=== PATIENT | female | born 1960 | race Caucasian/White ===

== ENCOUNTER 2024-01-06 10:55 | Outpatient (AMB) | payer OTHER, SELFPAY ==
--- NOTE | 2024-01-06 11:03 | A.OFFVIS_ITS ---
Vital Signs 3 01/06/24 11:04 Height 5 ft 4.75 in Weight 130 lb 1.164 oz BMI 21.8 BP 110/72 Blood Pressure Location Rt brachial Position Sitting Pulse 72 Pulse Source Pulse Oximeter Pulse Oximetry (%) 99 Oxygen Delivery Method Room Air Intake Visit Reasons: Asthma Severity Allergies latex Allergy (Intermediate, Verified 01/06/24 11:07) Itching omeprazole [From Prilosec] Allergy (Intermediate, Verified 01/06/24 11:07) Rash shellfish derived Allergy (Intermediate, Verified 01/06/24 11:07) Hives venlafaxine Allergy (Intermediate, Verified 01/06/24 11:07) Confusion cats Allergy (Intermediate, Uncoded 01/06/24 11:07) Difficulty Breathing salmon Allergy (Mild, Uncoded 01/06/24 11:07) Diarrhea HPI HPI Asthma Severity: Details: Maryjo is a pleasant 63 year old female, never smoker, with underlying environmental allergies, osteoporosis, and h/o basal cell carcinoma of right arm. She was referred by PCP for pulmonary evaluation for RAD versus asthma. She reports this past fall having symptoms consistent with asthma, significant wheezing, chest tightness and cough which resolved with albuterol PRN. She attributes symptoms to seasonal fall allergies as well as cat allergy. She denies any recent allergy testing and is not interested in repeating at this time. She reports throughout the winter and spring, her respiratory symptoms have been controlled, using zyrtec PRN with good effect. Today she denies any wheezing, chest tightness, dyspnea or cough. She denies any decrease in exercise capacity, she is quite active. She denies any prior history of asthma. She reports allergen immunotherapy as a child into her 20s. She reports sister and two sons with asthma and father with lung cancer/COPD. She denies any occupational exposures, working in an office setting. She reports prior chest CT from 2020 revealed 5mm RLL pulmonary nodule, however did not have repeat scans to assess stability. Review of Systems Const Denies chills, Denies excessive sweating, Denies fever(s), Denies headache(s) and Denies night sweats Eyes Denies dry eyes, Denies irritation and Denies itchy eyes ENT Reports Normal hearing present, Denies headache(s), Denies nasal congestion, Denies nasal discharge, Denies post nasal drip and Denies sore throat Card Denies chest pain, Denies chest pain at rest, Denies chest pain with activity, Denies claudication, Denies leg edema, Denies dyspnea, Denies dyspnea on exertion, Denies orthopnea and Denies paroxysmal nocturnal dyspnea Resp Denies chest congestion, Denies cough, Denies excessive phlegm production, Denies pain on inspiration, Denies pain with cough, Denies dyspnea, Denies dyspnea on exertion, Denies stridor and Denies wheezing Musc Denies myalgias Neuro Reports Normal hearing present and Denies headache(s) Endo Denies excessive sweating Adrien/Lymph Denies lymphadenopathy Aller/Immun Denies itchy eyes, Denies seasonal rhinorrhea and Denies wheezing Physical Exam Vital Signs: Last Vital Signs Pulse 72 01/06/24 11:04 BP 110/72 01/06/24 11:04 Pulse Ox 99 01/06/24 11:04 Oxygen Delivery Method Room Air 01/06/24 11:04 BMI result Body Mass Index 21.8 Const General: cooperative, healthy appearing, comfortable, no acute distress, well developed and alert Orientation/consciousness: patient oriented x3 Limitations: no limitations HEENT Head: Yes normal to inspection, Yes normocephalic and Yes atraumatic Ears: hearing grossly normal bilaterally and external ears normal Eyes General: appearance normal, both eyes and all related structures Eyelids: Yes eyelids normal Sclerae: sclerae normal EOM: EOMs intact bilaterally Neck Neck: Yes normal visual inspection and Yes no lymphadenopathy Lymphatic: no lymphadenopathy noted Chest Chest palpation & inspection: normal inspection of the chest Resp Effort & Inspection: normal respiratory effort, able to speak in complete sentences, no audible wheezes, no cough, no stridor, not tachypneic, no tripod positioning and no use of accessory muscles Auscultation: clear to auscultation bilaterally Cardio Jugular venous distension: no JVD Rate: regular rate Rhythm: regular rhythm Skin Other: warm, dry General skin exam: no rashes or lesions noted Neuro General: patient oriented x3 Cranial nerves: Yes Normal hearing present Cognition (Neuro): normal cognition Gait exam (Neuro): Normal gait present Extrem General: Yes normal to inspection, Yes capillary refill normal, Yes no clubbing, cyanosis or edema and Yes no pedal edema Psych Appearance: grossly normal and well kempt Speech and movement: Normal speech and movement present and Clear speech present Affect: normal affect Attitude: cooperative Thought process: Normal thought process present Thought content: Normal thought content present Insight: Good insight present (Psych) Judgement: Good judgement present (Psych) Results Reviewed Results Reviewed: Assessment & Plan Assessment & Plan (1) Asthma: Code(s): J45.909 - Unspecified asthma, uncomplicated Category: Medical (2) Environmental allergies: Code(s): Z91.09 - Other allergy status, other than to drugs and biological substances Category: Medical (3) Pulmonary nodule: Code(s): R91.1 - Solitary pulmonary nodule Category: Medical Plan At this time, Maryjo's symptoms are well controlled without any respiratory regimen. Offered RAST testing but she would like to hold off at this time. Will send for PFT to thoroughly evaluate for an obstructive defect. Will also send for chest CT as prior CT noted pulmonary nodule 5 mm of RUL, with no follow up scans to assess stability. All questions were answered and patient is in agreement of plan. Will follow up to review results or sooner if needed. Orders: Orders 2 PFT pulmonary function test Today J45.909 - Unspecified asthma, uncomplicated CT chest wo IV con Today R91.1 - Solitary pulmonary nodule
[2024-01-06 11:04] VITALS: BP 110/72; PULSE 72; O2SAT 99; BMI 21.8
== END 2024-01-06 11:43 | disposition home or self-care (01) ==
LOC: HO.HPS 10:57
PROVIDERS: PCP Internal Medicine; Referring Provider Internal Medicine; Visit Provider Nurse Practitioner Family
DX: J45.909 Unspecified asthma, uncomplicated (principal)
CPT/HCPCS: 94060; 94727; 94729; 99204

== ENCOUNTER → 2024-01-06 10:57 | Outpatient (BNVA) | payer OTHER, SELFPAY | PROVIDERS: PCP Internal Medicine; Referring Provider Internal Medicine; Visit Provider Nurse Practitioner Family ==

== ENCOUNTER 2024-01-06 12:54 | Outpatient (REF) | payer OTHER, SELFPAY ==
[2024-01-06 11:46] VITALS: PULSE 72; RESP 16; O2SAT 98
--- NOTE | 2024-01-06 13:57 | PFT_ITS ---
Indication: Asthma Spirometry [FEV1 to FVC 83%; FEV1 3.04 L; FVC 3.67 L. there was a significant response to bronchodilators noted. Maximum voluntary ventilation 89% predicted] Lung Volumes [Total lung capacity 100% predicted] Diffusion Capacity [Diffusing capacity 88 her % predicted] Comparisons [None] Interpretation [No obstructive nor restrictive ventilatory defects identified. There was a significant response to bronchodilators noted. Normal maximum voluntary ventilation. Lung volumes are within normal limits. Diffusing capacity also within normal limits. Clinical correlation warranted.] MTDD
== END 2024-01-06 12:55 | disposition home or self-care (01) ==
LOC: HO.RESP 12:54
PROVIDERS: PCP Internal Medicine; Visit Provider Nurse Practitioner Family
DX: J45.909 Unspecified asthma, uncomplicated (principal)
CPT/HCPCS: 94010; 94640; 94727; 94729

== ENCOUNTER 2024-02-14 07:15 | Outpatient (REF) | payer OTHER, SELFPAY ==
--- NOTE | ~2024-02-14 | CT_ITS ---
EXAMINATION: CT CHEST WITHOUT CONTRAST CLINICAL INFORMATION: Solitary pulmonary nodule . COMPARISON: None available. TECHNIQUE: Multidetector volumetric CT imaging of the chest was done. Axial MIP volume rendering provided. Sagittal and coronal reformatted images were obtained. This CT examination was performed using dose optimization techniques as appropriate, variously including the following: *Automated exposure control *Adjustment of mA and/or kV according to patient size (this includes techniques or standardized protocols for targeted exams where dose is matched to indication/reason for exam; i.e. extremities or head) *Use of iterative reconstruction technique DLP: 117 mGy-cm FINDINGS: LUNGS: Some small pulmonary nodules are seen (see wiley images). The largest is a triangular-shaped perifissural lymph node on the undersurface of the minor fissure in the right middle lobe measuring 3 mm (5:306). The lungs are clear with no evidence of inflammation or concerning nodules. MEDIASTINUM: The mediastinum is normal. CORONARY ARTERY CALCIFICATION: None visualized on this study. PLEURA: There is no pleural effusion. No pleural mass or thickening. AXILLA: No lymphadenopathy. UPPER ABDOMEN: Unremarkable. OSSEOUS STRUCTURES: Unremarkable. CT/CT chest wo IV con IMPRESSION: Small pulmonary nodules are seen. The largest is a 3 mm perifissural lymph node. Fleischner guidelines were followed.
== END 2024-02-14 07:16 | disposition home or self-care (01) ==
LOC: HO.CT 07:15
PROVIDERS: PCP Internal Medicine; Visit Provider Nurse Practitioner Family
DX: R91.1 Solitary pulmonary nodule (principal)
CPT/HCPCS: 71250

== ENCOUNTER 2024-02-17 09:56 | Outpatient (AMB) | payer OTHER, SELFPAY ==
--- NOTE | 2024-02-17 09:21 | A.OFFVIS_ITS ---
Vital Signs 02/17/24 10:04 Height 5 ft 4.75 in Weight 133 lb 6.075 oz BMI 22.4 BP 118/64 Blood Pressure Location Lt brachial Position Sitting Pulse 97 Pulse Source Pulse Oximeter Pulse Oximetry (%) 96 Oxygen Delivery Method Room Air Intake Visit Reasons: Shortness of breath Allergies latex Allergy (Intermediate, Verified 02/17/24 10:07) Itching omeprazole [From Prilosec] Allergy (Intermediate, Verified 02/17/24 10:07) Rash shellfish derived Allergy (Intermediate, Verified 02/17/24 10:07) Hives venlafaxine Allergy (Intermediate, Verified 02/17/24 10:07) Confusion cats Allergy (Intermediate, Uncoded 02/17/24 10:07) Difficulty Breathing salmon Allergy (Mild, Uncoded 02/17/24 10:07) Diarrhea HPI HPI Shortness of breath: Details: Maryjo is a pleasant 63 year old female, never smoker, with underlying environmental allergies, osteoporosis, and h/o basal cell carcinoma of right arm . At the last visit she had reported intermittent symptoms of dyspnea and wheezing which were minimal. However since the last visit, she reports worsening control of respiratory symptoms using albuterol frequently for wheezing and dyspnea on exertion. She denies cough or chest tightness. Prior chest CT from 2020 revealed 5mm RLL pulmonary nodule, repeat chest CT was ordered at the last visit, but has not been officially read yet. Today she presents to review PFT. Review of Systems Const Denies chills, Denies excessive sweating, Denies fever(s), Denies headache(s) and Denies night sweats Eyes Denies dry eyes, Denies irritation and Denies itchy eyes ENT Reports Normal hearing present, Denies headache(s), Denies nasal congestion, Denies nasal discharge, Denies post nasal drip, Reports sinus pressure and Denies sore throat Card Denies chest pain, Denies chest pain at rest, Denies chest pain with activity, Denies claudication, Denies leg edema, Reports dyspnea on exertion, Denies orthopnea and Denies paroxysmal nocturnal dyspnea Resp Denies chest congestion, Denies cough, Denies excessive phlegm production, Denies pain on inspiration, Denies pain with cough, Reports dyspnea on exertion, Denies stridor and Reports wheezing Musc Denies myalgias Neuro Reports Normal hearing present and Denies headache(s) Endo Denies excessive sweating Adrien/Lymph Denies lymphadenopathy Aller/Immun Denies itchy eyes, Denies seasonal rhinorrhea and Reports wheezing Physical Exam Vital Signs: Last Vital Signs Pulse 97 02/17/24 10:04 BP 118/64 02/17/24 10:04 Pulse Ox 96 02/17/24 10:04 Oxygen Delivery Method Room Air 02/17/24 10:04 BMI result Body Mass Index 22.4 Const General: cooperative, healthy appearing, comfortable, no acute distress, well developed and alert Orientation/consciousness: patient oriented x3 Limitations: no limitations HEENT Head: Yes normal to inspection, Yes normocephalic and Yes atraumatic Ears: hearing grossly normal bilaterally and external ears normal Eyes General: appearance normal, both eyes and all related structures Eyelids: Yes eyelids normal Sclerae: sclerae normal EOM: EOMs intact bilaterally Neck Neck: Yes normal visual inspection and Yes no lymphadenopathy Lymphatic: no lymphadenopathy noted Chest Chest palpation & inspection: normal inspection of the chest Resp Effort & Inspection: normal respiratory effort, able to speak in complete sentences, no audible wheezes, no cough, no stridor, not tachypneic, no tripod positioning and no use of accessory muscles Auscultation: clear to auscultation bilaterally Cardio Jugular venous distension: no JVD Rate: regular rate Rhythm: regular rhythm Skin Other: warm, dry General skin exam: no rashes or lesions noted Neuro General: patient oriented x3 Cranial nerves: Yes Normal hearing present Cognition (Neuro): normal cognition Gait exam (Neuro): Normal gait present Extrem General: Yes normal to inspection, Yes capillary refill normal, Yes no clubbing, cyanosis or edema and Yes no pedal edema Psych Appearance: grossly normal and well kempt Speech and movement: Normal speech and movement present and Clear speech present Affect: normal affect Attitude: cooperative Thought process: Normal thought process present Thought content: Normal thought content present Insight: Good insight present (Psych) Judgement: Good judgement present (Psych) Assessment & Plan Assessment & Plan (1) Asthma: Code(s): J45.909 - Unspecified asthma, uncomplicated Category: Medical (2) Environmental allergies: Code(s): Z91.09 - Other allergy status, other than to drugs and biological substances Category: Medical (3) Pulmonary nodule: Code(s): R91.1 - Solitary pulmonary nodule Category: Medical Plan Reviewed PFT results which revealed No obstructive nor restrictive ventilatory defects identified. There was a significant response to bronchodilators noted. Normal maximum voluntary ventilation. Lung volumes are within normal limits. Diffusing capacity also within normal limits. Will empirically trial Breo as patient quite symptomatic. Chest CT completed however not officially read by radiology. Will call patient to review results when completed. All questions were answered and patient is in agreement of plan. Will follow up in 6-8 weeks or sooner if needed. Medications: New fluticasone furoate-vilanterol 100-25 mcg/dose (Breo Ellipta) 1 inh inhalation DAILY 60 ea 6RF Coding Level of Care Code Est Pt Level 4 (94590) Diagnoses Asthma J45.909 Environmental allergies Z91.09 Pulmonary nodule R91.1
[2024-02-17 10:04] VITALS: BP 118/64; PULSE 97; O2SAT 96; BMI 22.4
== END 2024-02-17 10:32 | disposition home or self-care (01) ==
PROVIDERS: PCP Internal Medicine; Visit Provider Nurse Practitioner Family
DX: J45.909 Unspecified asthma, uncomplicated (principal); Z91.09 Other allergy status, other than to drugs and biological substances; R91.1 Solitary pulmonary nodule
CPT/HCPCS: 99214

== ENCOUNTER → 2024-02-17 09:56 | Outpatient (BNVA) | payer OTHER, SELFPAY | PROVIDERS: PCP Internal Medicine; Visit Provider Nurse Practitioner Family ==

== ENCOUNTER 2024-03-24 08:48 | Outpatient (AMB) | payer OTHER, SELFPAY ==
--- NOTE | 2024-03-24 08:45 | A.OFFVIS_ITS ---
Vital Signs 03/24/24 09:03 Height 5 ft 4.75 in Weight 128 lb BMI 21.5 BP 110/69 Blood Pressure Location Rt brachial Position Sitting Pulse 77 Pulse Source Pulse Oximeter Pulse Oximetry (%) 98 Oxygen Delivery Method Room Air Intake Visit Reasons: Shortness of breath Allergies latex Allergy (Intermediate, Verified 03/24/24 09:07) Itching omeprazole [From Prilosec] Allergy (Intermediate, Verified 03/24/24 09:07) Rash shellfish derived Allergy (Intermediate, Verified 03/24/24 09:07) Hives venlafaxine Allergy (Intermediate, Verified 03/24/24 09:07) Confusion cats Allergy (Intermediate, Uncoded 03/24/24 09:07) Difficulty Breathing salmon Allergy (Mild, Uncoded 03/24/24 09:07) Diarrhea HPI HPI Shortness of breath: Details: Maryjo is a pleasant 63 year old female, never smoker, with underlying environmental allergies, osteoporosis, and h/o basal cell carcinoma of right arm. At the last visit, Breo was added to regimen for dyspnea and wheezing with good effect, requiring albuterol very infrequently. She reports over the last week, likely from hot and humid weather, patient with worsening symptoms of dyspnea, wheezing, chest tightness and dry cough when engaging in any outdoor activities. [facility] Social History (Updated 03/24/24 @ 09:06 by Esme Pelletier [facility]) Patient Tobacco Use Status: Never used Tobacco Review of Systems Const Denies chills, Denies excessive sweating, Denies fever(s), Denies headache(s) and Denies night sweats Eyes Denies dry eyes, Denies irritation and Denies itchy eyes ENT Reports Normal hearing present, Denies headache(s), Denies nasal congestion, Denies nasal discharge, Denies post nasal drip and Denies sore throat Card Denies chest pain, Denies chest pain at rest, Denies chest pain with activity, Denies claudication, Denies leg edema, Reports dyspnea on exertion, Denies orthopnea and Denies paroxysmal nocturnal dyspnea Resp Denies chest congestion, Denies excessive phlegm production, Denies pain on inspiration, Denies pain with cough, Reports dyspnea on exertion, Denies stridor and Reports wheezing Musc Denies myalgias Neuro Reports Normal hearing present and Denies headache(s) Endo Denies excessive sweating Adrien/Lymph Denies lymphadenopathy Aller/Immun Denies itchy eyes, Denies seasonal rhinorrhea and Reports wheezing Physical Exam Vital Signs: Last Vital Signs Pulse 77 03/24/24 09:03 BP 110/69 03/24/24 09:03 Pulse Ox 98 03/24/24 09:03 Oxygen Delivery Method Room Air 03/24/24 09:03 BMI result Body Mass Index 21.5 Const General: cooperative, healthy appearing, comfortable, no acute distress, well developed and alert Orientation/consciousness: patient oriented x3 Limitations: no limitations HEENT Head: Yes normal to inspection, Yes normocephalic and Yes atraumatic Ears: hearing grossly normal bilaterally and external ears normal Eyes General: appearance normal, both eyes and all related structures Eyelids: Yes eyelids normal Sclerae: sclerae normal EOM: EOMs intact bilaterally Neck Neck: Yes normal visual inspection and Yes no lymphadenopathy Lymphatic: no lymphadenopathy noted Chest Chest palpation & inspection: normal inspection of the chest Resp Effort & Inspection: normal respiratory effort, able to speak in complete sentences, no audible wheezes, no cough, no stridor, not tachypneic, no tripod positioning and no use of accessory muscles Auscultation: clear to auscultation bilaterally Cardio Jugular venous distension: no JVD Rate: regular rate Rhythm: regular rhythm Skin Other: warm, dry General skin exam: no rashes or lesions noted Neuro General: patient oriented x3 Cranial nerves: Yes Normal hearing present Cognition (Neuro): normal cognition Gait exam (Neuro): Normal gait present Extrem General: Yes normal to inspection, Yes capillary refill normal, Yes no clubbing, cyanosis or edema and Yes no pedal edema Psych Appearance: grossly normal and well kempt Speech and movement: Normal speech and movement present and Clear speech present Affect: normal affect Attitude: cooperative Thought process: Normal thought process present Thought content: Normal thought content present Insight: Good insight present (Psych) Judgement: Good judgement present (Psych) Assessment & Plan Assessment & Plan (1) Asthma: Code(s): J45.909 - Unspecified asthma, uncomplicated Category: Medical (2) Environmental allergies: Code(s): Z91.09 - Other allergy status, other than to drugs and biological substances Category: Medical (3) Pulmonary nodule: Code(s): R91.1 - Solitary pulmonary nodule Category: Medical Plan Maryjo reports worsening control of asthma with the change in weather, advised to use albuterol prior to engaging in any activities outdoors. If symptoms persist, will consider increasing Breo. Patient is aware if symptoms worsen to call office. All questions were answered and patient is in agreement of plan. Will follow up in 6-8 weeks or sooner if needed. Coding Level of Care Code Est Pt Level 3 (64331) Diagnoses Asthma J45.909 Environmental allergies Z91.09 Pulmonary nodule R91.1
[2024-03-24 09:03] VITALS: BP 110/69; PULSE 77; O2SAT 98; BMI 21.5
== END 2024-03-24 09:27 | disposition home or self-care (01) ==
PROVIDERS: PCP Internal Medicine; Visit Provider Nurse Practitioner Family
DX: J45.909 Unspecified asthma, uncomplicated (principal); Z91.09 Other allergy status, other than to drugs and biological substances; R91.1 Solitary pulmonary nodule
CPT/HCPCS: 99213

== ENCOUNTER → 2024-03-24 08:48 | Outpatient (BNVA) | payer OTHER, SELFPAY | PROVIDERS: PCP Internal Medicine; Visit Provider Nurse Practitioner Family ==

== ENCOUNTER 2024-05-26 09:04 | Outpatient (AMB) | payer OTHER, SELFPAY ==
[2024-05-26 09:23] VITALS: BP 102/68; PULSE 75; O2SAT 97; BMI 21.7
--- NOTE | 2024-05-26 09:23 | MHC.OFFVIS ---
Vital Signs 05/26/24 09:23 Height 5 ft 4.75 in Weight 129 lb 8 oz BMI 21.7 BP 102/68 Blood Pressure Location Rt brachial Position Sitting Pulse 75 Pulse Source Pulse Oximeter Pulse Oximetry (%) 97 Oxygen Delivery Method Room Air Intake Visit Reasons: Shortness of breath Allergies latex Allergy (Intermediate, Verified 05/26/24 09:28) Itching omeprazole [From Prilosec] Allergy (Intermediate, Verified 05/26/24 09:28) Rash shellfish derived Allergy (Intermediate, Verified 05/26/24 09:28) Hives venlafaxine Allergy (Intermediate, Verified 05/26/24 09:28) Confusion cats Allergy (Intermediate, Uncoded 05/26/24 09:28) Difficulty Breathing salmon Allergy (Mild, Uncoded 05/26/24 09:28) Diarrhea HPI HPI Shortness of breath: Details: Maryjo is a pleasant 63 year old female, never smoker, with underlying environmental allergies, osteoporosis, and h/o basal cell carcinoma of right arm. At the last visit, Breo was increased with improvements in respiratory symptoms. However continues to report seasonal allergies triggering asthma. She denies any visits to urgent care or hospitalizations since the last visit. [facility] Social History (Reviewed 05/26/24 @ 09:27 by Esme Pelletier [facility]) Patient Tobacco Use Status: Never used Tobacco Review of Systems Const Denies chills, Denies excessive sweating, Denies fever(s), Denies headache(s) and Denies night sweats Eyes Denies dry eyes, Denies irritation and Denies itchy eyes ENT Reports Normal hearing present and Denies headache(s) Card Denies chest pain, Denies chest pain at rest, Denies chest pain with activity, Denies claudication, Denies leg edema, Reports dyspnea on exertion, Denies orthopnea and Denies paroxysmal nocturnal dyspnea Resp Denies chest congestion, Denies excessive phlegm production, Denies pain on inspiration, Denies pain with cough, Reports dyspnea on exertion, Denies stridor and Reports wheezing Musc Denies myalgias Neuro Reports Normal hearing present and Denies headache(s) Endo Denies excessive sweating Adrien/Lymph Denies lymphadenopathy Aller/Immun Denies itchy eyes, Denies seasonal rhinorrhea and Reports wheezing Physical Exam Vital Signs: Last Vital Signs Pulse 75 05/26/24 09:23 BP 102/68 05/26/24 09:23 Pulse Ox 97 05/26/24 09:23 Oxygen Delivery Method Room Air 05/26/24 09:23 BMI result Body Mass Index 21.7 Const General: cooperative, healthy appearing, comfortable, no acute distress, well developed and alert Orientation/consciousness: patient oriented x3 Limitations: no limitations HEENT Head: Yes normal to inspection, Yes normocephalic and Yes atraumatic Ears: hearing grossly normal bilaterally and external ears normal Eyes General: appearance normal, both eyes and all related structures Eyelids: Yes eyelids normal Sclerae: sclerae normal EOM: EOMs intact bilaterally Neck Neck: Yes normal visual inspection and Yes no lymphadenopathy Lymphatic: no lymphadenopathy noted Chest Chest palpation & inspection: normal inspection of the chest Resp Effort & Inspection: normal respiratory effort, able to speak in complete sentences, no audible wheezes, no cough, no stridor, not tachypneic, no tripod positioning and no use of accessory muscles Auscultation: clear to auscultation bilaterally Cardio Jugular venous distension: no JVD Rate: regular rate Rhythm: regular rhythm Skin Other: warm, dry General skin exam: no rashes or lesions noted Neuro General: patient oriented x3 Cranial nerves: Yes Normal hearing present Cognition (Neuro): normal cognition Gait exam (Neuro): Normal gait present Extrem General: Yes normal to inspection, Yes capillary refill normal, Yes no clubbing, cyanosis or edema and Yes no pedal edema Psych Appearance: grossly normal and well kempt Speech and movement: Normal speech and movement present and Clear speech present Affect: normal affect Attitude: cooperative Thought process: Normal thought process present Thought content: Normal thought content present Insight: Good insight present (Psych) Judgement: Good judgement present (Psych) Assessment & Plan Assessment & Plan (1) Asthma: Code(s): J45.909 - Unspecified asthma, uncomplicated Category: Medical (2) Environmental allergies: Code(s): Z91.09 - Other allergy status, other than to drugs and biological substances Category: Medical (3) Pulmonary nodule: Code(s): R91.1 - Solitary pulmonary nodule Category: Medical Plan Maryjo reports improvements with Breo 200 mcg and albuterol MDI, however continues to report seasonal allergy triggers. Will add Singulair. Patient is aware if symptoms worsen to call office. All questions were answered and patient is in agreement of plan. Will follow up in 3 months or sooner if needed. Medications: New montelukast (Singulair) 10 mg PO BEDTIME 30 tabs 3RF Coding Level of Care Code Est Pt Level 3 (29936) Diagnoses Asthma J45.909 Environmental allergies Z91.09 Pulmonary nodule R91.1
== END 2024-05-26 09:57 | disposition home or self-care (01) ==
PROVIDERS: PCP Internal Medicine; Visit Provider Nurse Practitioner Family
DX: J45.909 Unspecified asthma, uncomplicated (principal); Z91.09 Other allergy status, other than to drugs and biological substances; R91.1 Solitary pulmonary nodule
CPT/HCPCS: 99213

== ENCOUNTER → 2024-05-26 09:04 | Outpatient (BNVA) | payer OTHER, SELFPAY | PROVIDERS: PCP Internal Medicine; Visit Provider Nurse Practitioner Family ==

== ENCOUNTER 2024-08-25 09:52 | Outpatient (AMB) | payer OTHER, SELFPAY ==
--- NOTE | 2024-08-25 09:56 | MHC.OFFVIS ---
Vital Signs 08/25/24 09:57 Height 5 ft 4.75 in Weight 127 lb 6 oz BMI 21.4 BP 104/66 Blood Pressure Location Rt brachial Position Sitting Pulse 90 Pulse Source Pulse Oximeter Pulse Oximetry (%) 96 Oxygen Delivery Method Room Air Intake Visit Reasons: Shortness of breath Allergies latex Allergy (Intermediate, Verified 08/25/24 10:00) Itching omeprazole [From Prilosec] Allergy (Intermediate, Verified 08/25/24 10:00) Rash shellfish derived Allergy (Intermediate, Verified 08/25/24 10:00) Hives venlafaxine Allergy (Intermediate, Verified 08/25/24 10:00) Confusion cats Allergy (Intermediate, Uncoded 08/25/24 10:00) Difficulty Breathing salmon Allergy (Mild, Uncoded 08/25/24 10:00) Diarrhea HPI HPI Shortness of breath: Details: Maryjo is a pleasant 63 year old female, never smoker, with underlying environmental allergies, osteoporosis, and h/o basal cell carcinoma of right arm. At baseline she has been well controlled with Breo, singulair and albuterol MDI. She does note worsening respiratory symptoms after exposure to granddaughter with likely URI two weeks ago. She continues to report chest congestion, dry cough with difficulty expectorating, dyspnea and wheezing. She has not been using albuterol. She denies fevers or chills. [facility] Social History Patient Tobacco Use Status: Never used Tobacco Review of Systems Const Denies chills, Denies excessive sweating, Denies fever(s), Denies headache(s) and Denies night sweats Eyes Denies dry eyes, Denies irritation and Denies itchy eyes ENT Reports Normal hearing present and Denies headache(s) Card Denies chest pain, Denies chest pain at rest, Denies chest pain with activity, Denies claudication, Denies leg edema, Reports dyspnea on exertion, Denies orthopnea and Denies paroxysmal nocturnal dyspnea Resp Denies excessive phlegm production, Denies pain on inspiration, Denies pain with cough, Reports dyspnea on exertion, Denies stridor and Reports wheezing Musc Denies myalgias Neuro Reports Normal hearing present and Denies headache(s) Endo Denies excessive sweating Adrien/Lymph Denies lymphadenopathy Aller/Immun Denies itchy eyes, Denies seasonal rhinorrhea and Reports wheezing Physical Exam Vital Signs: Last Vital Signs Pulse 90 08/25/24 09:57 BP 104/66 08/25/24 09:57 Pulse Ox 96 08/25/24 09:57 Oxygen Delivery Method Room Air 08/25/24 09:57 BMI result Body Mass Index 21.4 Const General: cooperative, healthy appearing, comfortable, no acute distress, well developed and alert Orientation/consciousness: patient oriented x3 Limitations: no limitations HEENT Head: Yes normal to inspection, Yes normocephalic and Yes atraumatic Ears: hearing grossly normal bilaterally and external ears normal Eyes General: appearance normal, both eyes and all related structures Eyelids: Yes eyelids normal Sclerae: sclerae normal EOM: EOMs intact bilaterally Neck Neck: Yes normal visual inspection and Yes no lymphadenopathy Lymphatic: no lymphadenopathy noted Chest Chest palpation & inspection: normal inspection of the chest Resp Other: post exhalation cough with rhonchi , improved with duoneb Effort & Inspection: normal respiratory effort, able to speak in complete sentences, no audible wheezes, no stridor, not tachypneic, no tripod positioning and no use of accessory muscles Cardio Jugular venous distension: no JVD Rate: regular rate Rhythm: regular rhythm Skin Other: warm, dry General skin exam: no rashes or lesions noted Neuro General: patient oriented x3 Cranial nerves: Yes Normal hearing present Cognition (Neuro): normal cognition Gait exam (Neuro): Normal gait present Extrem General: Yes normal to inspection, Yes capillary refill normal, Yes no clubbing, cyanosis or edema and Yes no pedal edema Psych Appearance: grossly normal and well kempt Speech and movement: Normal speech and movement present and Clear speech present Affect: normal affect Attitude: cooperative Thought process: Normal thought process present Thought content: Normal thought content present Insight: Good insight present (Psych) Judgement: Good judgement present (Psych) Office Procedures Nebulizer Treatment Nebulizer Treatment [id number]/MDI RX initial, or Nebulizer Subsequent Treatment Office Meds ipratropium 0.5 mg-albuterol 3 mg (2.5 mg base)/3 mL nebulization krisn Performing Provider: Leesa Flood NP Performing Location: [facility] [place] [facility] Administered by: Tami Fisher LPN on 08/25/24 12:13 Dose Route Admin Location Dispensed Lot Number Expiration Date NDC [employer] Service Supervisor 3 mL inhalation 3 mL [id number] 12/14/25 40569-177-08 [employer] Assessment & Plan Assessment & Plan (1) Asthma: Code(s): J45.909 - Unspecified asthma, uncomplicated Category: Medical (2) Environmental allergies: Code(s): Z91.09 - Other allergy status, other than to drugs and biological substances Category: Medical (3) Pulmonary nodule: Code(s): R91.1 - Solitary pulmonary nodule Category: Medical Plan Patient significantly improved after duoneb, encouraged to use nebulizer more frequently during this time. Advised to continue current regimen. If symptoms persist will consider prednisone. She is aware to call if symptoms do not improve. All questions were answered and patient is in agreement of plan. Will follow up in 3 months or sooner if needed. Orders: Orders AMB Nebulizer Treatment Today J45.909 - Unspecified asthma, uncomplicated Medications: New albuterol sulfate 2.5 mg (3 mL) inhalation Q4-6H PRN 180 mL 0RF shortness of breath or wheezing Coding Level of Care Code Est Pt Level 4 (30639) Diagnoses Asthma J45.909 Environmental allergies Z91.09 Pulmonary nodule R91.1 CPT Codes Nebulizer Treatment - Nebulizer Treatment, initial or subsequent: [id number]/MDI RX initial, or Nebulizer Subsequent Treatment ([id number])
[2024-08-25 09:57] VITALS: BP 104/66; PULSE 90; O2SAT 96; BMI 21.4
== END 2024-08-25 10:30 | disposition home or self-care (01) ==
PROVIDERS: PCP Internal Medicine; Visit Provider Nurse Practitioner Family
DX: J45.909 Unspecified asthma, uncomplicated (principal); Z91.09 Other allergy status, other than to drugs and biological substances; R91.1 Solitary pulmonary nodule
CPT/HCPCS: 99214

== ENCOUNTER → 2024-08-25 09:52 | Outpatient (BNVA) | payer OTHER, SELFPAY | PROVIDERS: PCP Internal Medicine; Visit Provider Nurse Practitioner Family | DX: J45.909 Unspecified asthma, uncomplicated (principal); R91.1 Solitary pulmonary nodule; Z91.09 Other allergy status, other than to drugs and biological substances | CPT/HCPCS: 94640 ==

== ENCOUNTER 2024-11-24 09:00 | Outpatient (AMB) | payer MEDICARE, SELFPAY ==
--- NOTE | 2024-11-24 09:09 | MHC.OFFVIS ---
Vital Signs 11/24/24 09:10 Height 5 ft 4.75 in Weight 128 lb BMI 21.5 BP 122/64 Blood Pressure Location Lt brachial Position Sitting Pulse 92 Pulse Source Pulse Oximeter Pulse Oximetry (%) 98 Oxygen Delivery Method Room Air Intake Visit Reasons: Shortness of breath Moose Hunter Required: No Human Resources Benefits Specialist: Human Resources Benefits Specialist offered & declined Accompanied by: Self / Same As Patient Allergies latex Allergy (Intermediate, Verified 11/24/24 09:15) Itching omeprazole [From Prilosec] Allergy (Intermediate, Verified 11/24/24 09:15) Rash shellfish derived Allergy (Intermediate, Verified 11/24/24 09:15) Hives venlafaxine Allergy (Intermediate, Verified 11/24/24 09:15) Confusion cats Allergy (Intermediate, Uncoded 11/24/24 09:15) Difficulty Breathing salmon Allergy (Mild, Uncoded 11/24/24 09:15) Diarrhea Medication List - Last Reconciled 11/24/24 by Tami Fisher LPN albuterol sulfate 90 mcg/actuation 1 puff inhalation Q4H PRN albuterol sulfate 2.5 mg (3 mL) inhalation Q4-6H PRN alendronate mg PO atorvastatin 10 mg PO DAILY Breo Ellipta 200-25 mcg/dose (fluticasone furoate-vilanterol) 1 inh inhalation DAILY NS cetirizine (Zyrtec) 10 mg PO DAILY PRN diphenhydramine HCl (Benadryl) 25 mg PO BEDTIME PRN famotidine-Ca carb-mag hydrox 10-800-165 mg (Pepcid Complete) 1 tab PO Q12H fluticasone propionate 50 mcg/actuation (Flonase Allergy Relief) 1 spray intranasal DAILY inulin (Fiber Gummies) grams PO PRN melatonin mg PO PRN montelukast 10 mg PO BEDTIME multivitamin (Daily Multi-Vitamin tablet) 1 tab PO DAILY HPI HPI Shortness of breath: Details: Maryjo is a pleasant 63 year old female, never smoker, with underlying environmental allergies, osteoporosis, and h/o basal cell carcinoma of right arm. At this time symptoms have been well controlled on Breo, Singulair, using albuterol MDI infrequently. Her symptoms are triggered by allergens, recently during vacation symptoms worsened with exposure to fragrances requiring frequent use of albuterol MDI/neb with good effect. Since being home symptoms have significantly improved. She had received allergy shots years ago with good effect and is interested in possibly restarting allergen immunotherapy. [facility] Social History Patient Tobacco Use Status: Never used Tobacco Review of Systems Const Denies chills, Denies excessive sweating, Denies fever(s), Denies headache(s) and Denies night sweats Eyes Denies dry eyes, Denies irritation and Denies itchy eyes ENT Reports Normal hearing present, Denies headache(s), Denies nasal congestion, Denies nasal discharge, Denies post nasal drip and Denies sore throat Card Denies chest pain, Denies chest pain at rest, Denies chest pain with activity, Denies claudication, Denies leg edema, Denies dyspnea, Denies dyspnea on exertion, Denies orthopnea and Denies paroxysmal nocturnal dyspnea Resp Denies chest congestion, Denies cough, Denies excessive phlegm production, Denies pain on inspiration, Denies pain with cough, Denies dyspnea, Denies dyspnea on exertion, Denies stridor and Denies wheezing Musc Denies myalgias Neuro Reports Normal hearing present and Denies headache(s) Endo Denies excessive sweating Adrien/Lymph Denies lymphadenopathy Aller/Immun Denies itchy eyes, Denies seasonal rhinorrhea and Denies wheezing Physical Exam Vital Signs: Last Vital Signs Pulse 92 11/24/24 09:10 BP 122/64 11/24/24 09:10 Pulse Ox 98 11/24/24 09:10 Oxygen Delivery Method Room Air 11/24/24 09:10 BMI result Body Mass Index 21.5 Const General: cooperative, healthy appearing, comfortable, no acute distress, well developed and alert Orientation/consciousness: patient oriented x3 Limitations: no limitations HEENT Head: Yes normal to inspection, Yes normocephalic and Yes atraumatic Ears: hearing grossly normal bilaterally and external ears normal Eyes General: appearance normal, both eyes and all related structures Eyelids: Yes eyelids normal Sclerae: sclerae normal EOM: EOMs intact bilaterally Neck Neck: Yes normal visual inspection and Yes no lymphadenopathy Lymphatic: no lymphadenopathy noted Chest Chest palpation & inspection: normal inspection of the chest Resp Effort & Inspection: normal respiratory effort, able to speak in complete sentences, no audible wheezes, no cough, no stridor, not tachypneic, no tripod positioning and no use of accessory muscles Auscultation: clear to auscultation bilaterally Cardio Jugular venous distension: no JVD Rate: regular rate Rhythm: regular rhythm Skin Other: warm, dry General skin exam: no rashes or lesions noted Neuro General: patient oriented x3 Cranial nerves: Yes Normal hearing present Cognition (Neuro): normal cognition Gait exam (Neuro): Normal gait present Extrem General: Yes normal to inspection, Yes capillary refill normal, Yes no clubbing, cyanosis or edema and Yes no pedal edema Psych Appearance: grossly normal and well kempt Speech and movement: Normal speech and movement present and Clear speech present Affect: normal affect Attitude: cooperative Thought process: Normal thought process present Thought content: Normal thought content present Insight: Good insight present (Psych) Judgement: Good judgement present (Psych) Results Reviewed Results Reviewed: [address] [address] [address] Scan Report Signed Patient: Maryjo Forte MR#: [id number] : 1960 Acct:[id number] Age/Sex: 63 / F ADM Date: 02/14/24 Loc: HO.CT Attending Dr: Leesa Flood NP Ordering Physician: Leesa Flood NP Date of Service: 02/14/24 Procedure(s): CT chest wo IV con Accession Number(s): [id number] cc: Keila Herbert DO; Leesa Flood NP~ EXAMINATION: CT CHEST WITHOUT CONTRAST CLINICAL INFORMATION: Solitary pulmonary nodule . COMPARISON: None available. TECHNIQUE: Multidetector volumetric CT imaging of the chest was done. Axial MIP volume rendering provided. Sagittal and coronal reformatted images were obtained. This CT examination was performed using dose optimization techniques as appropriate, variously including the following: *Automated exposure control *Adjustment of mA and/or kV according to patient size (this includes techniques or standardized protocols for targeted exams where dose is matched to indication/reason for exam; i.e. extremities or head) *Use of iterative reconstruction technique DLP: 117 mGy-cm FINDINGS: LUNGS: Some small pulmonary nodules are seen (see wiley images). The largest is a triangular-shaped perifissural lymph node on the undersurface of the minor fissure in the right middle lobe measuring 3 mm (5:306). The lungs are clear with no evidence of inflammation or concerning nodules. MEDIASTINUM: The mediastinum is normal. CORONARY ARTERY CALCIFICATION: None visualized on this study. PLEURA: There is no pleural effusion. No pleural mass or thickening. AXILLA: No lymphadenopathy. UPPER ABDOMEN: Unremarkable. OSSEOUS STRUCTURES: Unremarkable. CT/CT chest wo IV con IMPRESSION: Small pulmonary nodules are seen. The largest is a 3 mm perifissural lymph node. Fleischner guidelines were followed. Dictated By: Kevin Noonan MD Signed By: <Electronically signed by Kevin Noonan MD in OV> 03/24/24954 DD/ 1 TD/TT: Fish Hatchery Inspector: WAYNE Assessment & Plan Assessment & Plan (1) Asthma: Code(s): J45.909 - Unspecified asthma, uncomplicated Category: Medical (2) Environmental allergies: Code(s): Z91.09 - Other allergy status, other than to drugs and biological substances Category: Medical (3) Pulmonary nodule: Code(s): R91.1 - Solitary pulmonary nodule Category: Medical (4) Allergic rhinitis: Code(s): J30.9 - Allergic rhinitis, unspecified Category: Medical Plan Respiratory symptoms have been well controlled on current regimen, advised to continue and will send refills. Will also send nebulizer for home use. Encouraged use of nasal spray and antihistamine for the spring season and will enter referral to hooker up for evaluation for allergen immunotherapy. Chest CT 01/2024 revealed multiple small pulmonary nodules, will repeat to assess stability 01/2025. All questions were answered and patient is in agreement of plan. Will follow up in 3 months or sooner if needed. Orders: Orders CT chest wo IV con 2 Months R91.1 - Solitary pulmonary nodule Referrals Allergy & Immunology Referral J30.9 - Allergic rhinitis, unspecified, J45.909 - Unspecified asthma, uncomplicated, Z91.09 - Other allergy status, other than to drugs and biological substances Medications: New albuterol sulfate 90 mcg/actuation 1 puff inhalation Q4H PRN 1 ea 3RF shortness of breath or wheezing Refilled Breo Ellipta 200-25 mcg/dose (fluticasone furoate-vilanterol) 1 inh inhalation DAILY 60 ea 3RF NS Coding Level of Care Code Est Pt Level 4 (59509) Diagnoses Asthma J45.909 Environmental allergies Z91.09 Pulmonary nodule R91.1 Allergic rhinitis J30.9
[2024-11-24 09:10] VITALS: BP 122/64; PULSE 92; O2SAT 98; BMI 21.5
== END 2024-11-24 09:38 | disposition home or self-care (01) ==
LOC: HO.HPSW 09:01
PROVIDERS: PCP Internal Medicine; Visit Provider Nurse Practitioner Family
DX: J45.909 Unspecified asthma, uncomplicated (principal); Z91.09 Other allergy status, other than to drugs and biological substances; R91.1 Solitary pulmonary nodule; J30.9 Allergic rhinitis, unspecified
CPT/HCPCS: 99214

== ENCOUNTER → 2024-11-24 09:00 | Outpatient (BNVA) | payer MEDICARE, SELFPAY | PROVIDERS: PCP Internal Medicine; Visit Provider Nurse Practitioner Family | DX: J45.909 Unspecified asthma, uncomplicated (principal); R91.1 Solitary pulmonary nodule; Z91.09 Other allergy status, other than to drugs and biological substances | CPT/HCPCS: 99212 ==

== ENCOUNTER 2025-01-25 07:57 | Outpatient (REF) | payer MEDICARE, SELFPAY ==
--- NOTE | ~2025-01-25 | CT_ITS ---
CLINICAL HISTORY: R91.1 - Solitary pulmonary nodule CT chest without contrast Comparison: CT/GA/SR - CT CHEST WO IV CON - 02/14/24 07:40 EDT Findings: The heart size is normal. The visualized thyroid and mediastinum are unremarkable. No evidence of pneumonia or edema. There is a new, 12 mm nodule within the right upper lobe posterolaterally (image 65), with several adjacent satellite nodules measuring roughly 5 mm diameter. Previously seen subpleural 3 mm right middle lobe nodule ( image 82) is unchanged. The visualized upper abdomen is unremarkable. The bones are intact. IMPRESSION: 1. New right upper lobe nodules. Further assessment with PET-CT or biopsy recommended. This document has been electronically signed by: Soren Rodriguez MD on 01/25/2025 16:07:29
== END 2025-01-25 07:58 | disposition home or self-care (01) ==
LOC: HO.CT 07:57
PROVIDERS: PCP Internal Medicine; Visit Provider Nurse Practitioner Family
DX: R91.1 Solitary pulmonary nodule (principal)
CPT/HCPCS: 71250

== ENCOUNTER → 2025-01-25 07:59 | Outpatient (BNV) | payer MEDICARE, SELFPAY | PROVIDERS: PCP Internal Medicine; Visit Provider Radiology Diagnostic Radiology | DX: R91.8 Other nonspecific abnormal finding of lung field (principal) | CPT/HCPCS: 71250 ==

== ENCOUNTER 2025-04-13 09:53 | Outpatient (AMB) | payer MEDICARE, SELFPAY ==
--- OUTSIDE RECORDS SUMMARY | 2025-04-08 14:30 | XMS_ITS | Encounter Summary ---
Author Organization [facility] Address [address] [place] [address] Care Team Providers Care Cosmetics Machine Operator Name Role Phone Keila Sousa DO Primary Care Pro vider Reason for Visit * Reason Comments Post-op Post op DOS 03/23 Encounter Details Date Type Department Care Team ([facility] Contact Info) Description 04/08/2025 2:30 PM EDT Office Visit Thoracic Surgery - [place] [address] [facility] [address] [place] [id number] Radha Hathaway PA [address] [facility], [address] [place] [address] Pulmonary nodule (Primary Dx); Mycobacterium avium infection (CMS/HCC V24, [facility]/HCC V28) Social History Tobacco Use Types Packs/Day Years Used Date Smoking Tobacco: Never Smokeless Tobacco: Never Alcohol Use Standard Drinks/Week Comments Yes 0 (1 standard drink = 0.6 oz pur e alcohol) 3x week Interpersonal Safety Answer Date Record ed Physical Abuse 03/23/2025 Verbal Abuse 03/23/2025 Comments Unknown Sex and Gender Information Value Date Recorded Sex Assigned at Female 02/24/2025 9:29 AM EDT Legal Sex Female 9:07 AM EDT Gender Identity Female 02/24/2025 9:29 AM EDT Sexual Orientation Straight 02/24/2025 9: 29 AM EDT documented as of this encounter Last Filed Vital Signs Vital Sign Reading Time Taken Comments Blood Pressure 137/81 04/08/2025 2:29 PM EDT Pulse 83 04/08/2025 2:29 PM EDT Temperature 36.8 C (98.2 F) 04/08/2025 2:29 PM EDT Respiratory Rate - - Oxygen Saturation 97% 04/08/2025 2:29 PM EDT Inhaled Oxygen Concentration - - Weight 60.4 kg (133 lb 1.6 oz) 04/08/2025 2:29 P M EDT Height 166.4 cm (5' 5.5 ) 04/08/2025 2:29 PM EDT Body Mass Index 21.81 04/08/2025 2:29 PM EDT documented in this encounter Progress Notes * JEFFREY Shirley - 04/11/2025 9:40 AM EDTAssociated Problem(s): Pulmonary nodule Ms. Thornton is a 64-year-old female who had a robotic right upper lobe wedge resection on March 23, 2025. 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 Patient appears to be healing very well from her surgery. Her previous cellulitis over the right chest wall has resolved completely and there is no further indication of ongoing infection. I reassured the patient that her mild abdominal swelling should improve, if not resolved, over the next several months. I explained that this is secondary to her intercostal nerves being inflamed from surgery. I did also state that occasionally it does take upwards of a year for nerves to repair themselves. The patient follows with pulmonology at [facility]. I will have my office call over to them to get her set up with an appointment to discuss whether treatment is required for her Mycobacterium which was noted within her pulmonary nodule. Being that the patient is a non-smoker never smoker she does remain fairly low risk for developing lung cancer in the future. She should follow with her primary care physician and drying machine back tender in regards to whether ongoing CTs are necessary per their medical opinion. As for thoracic surgery, the patient may follow-up with us on an as-needed basis going forward. * JEFFREY Shirley - 04/08/2025 2:30 PM EDT Images from the original note were not included. Thoracic Surgery Postoperative Visit Patient name Maryjo Forte 1960 Date of Visit: April 08, 2025 Care Team PCP: Keila Sousa DO Unit Aid: Leesa ([facility] pulmonology) Reason for Visit Chief Complaint Patient presents with Post-op Post op DOS 03/23 Recent Thoracic Procedure Information Date of procedure: March 23, 2025 Type of procedure performed: Navigation bronchoscopy/radial ebus with dye marking, [place] right upper lobe wedge for pulmonary nodule, mediastinal lymphadenectomy, bronchoscopy with aspiration, intercostal paravertebral nerve blocks, cryo nerve blocks levels 6, 7, and 8. History of Present Illness Ms. Forte is a 64 y.o. female who presents today for her postoperative visit in the office. This patient is a non-smoker never smoker who initially had a CT scan at [facility] in January 2025 that when compared to 1 year prior showed a new 12 mm nodule in the right upper lobe with some satellite nodules around it. There was no associated lymphadenopathy or pleural fluid. PET scan done at the end of January 2025 showed an SUV max of 1.9 within the nodule without uptake elsewhere. Franci ent was seen in consultation with Dr. Daniels where this nodule was discussed and ultimately decision was made for resection. The patient was taken to the operating room electively on March 23, 2025 at which point she had a navigational bronchoscopy with dye marking followed by robotic right upper lobe wedge resection and mediastinal lymphadenectomy. Intraoperative frozen section was negative for malignancy, therefore no further anatomic lung resection was done. The patient did well after surgery and was ultimately discharged home the following morning after her chest tube was removed. Patient states overall she has been feeling well. She does complain of some abdominal distention which initially was bilateral, however the left side has decreased and now is primarily over the rightabdomen. She has some tenderness around her incisions as well. She denies any recent fevers or chills and ultimately states her previous cellulitis around the incisions which was treated with antibiotics has significantly decreased. She denies any significant shortness of breath since her surgery and denies any other concerning symptoms such as hemoptysis or severe changes in her bowel or bladderhabits. Past Medical History: Diagnosis Date Asthma Cervical dystonia Colon polyps GERD (gastroesophageal reflux disease) Hyperlipidemia Lung nodule PONV (postoperative nausea and vomiting) Shortness of breath Sleep apnea intolerant to CPAP Streptococcal arthritis of both hands ([facility] V24, [facility] V28) Streptococcal arthritis of foot, unspecified laterality ([facility] V24, [facility] V28) Patient Active Problem List Diagnosis Pulmonary nodule Mycobacterium avium infection ([facility] V24, [facility] V28) Past Surgical History: Procedure Laterality Date BONE GRAFT lower gum DILATION AND CURETTAGE OF UTERUS Allergies Allergen Reactions Omeprazole Hives Shellfish Derived Diarrhea Latex Hives, Itching and Rash Current Outpatient Medications on File Prior to Visit Medication Sig Dispense Refill Airsupra 90-80 mcg/actuation inhaler Inhale 2 puffs by mouth 2 (two) times daily morning and afternoon. albuterol 2.5 mg /3 mL (0.083 %) nebulizer solution Take 3 mL (2.5 mg total) by nebulization every 6 (six) hours if needed for wheezing. albuterol HFA (PROAIR HFA ; PROVENTIL HFA ; VENTOLIN HFA) 90 mcg/actuation inhaler Inhale 2 puffs by mouth every 4 (four) hours if needed for shortness of breath or wheezing. alendronate (FOSAMAX) 70 mg tablet Take 1 tablet (70 mg total) by mouth every 7 (seven) days. Takesmondays atorvastatin (LIPITOR) 20 mg tablet Take 1 tablet (20 mg total) by mouth 1 (one) time each day. for90 days cephalexin (KEFLEX) 500 mg capsule Take 1 capsule (500 mg total) by mouth 2 (two) times a day for 10 days. 20 each 0 doxycycline (VIBRAMYCIN) 100 mg capsule Take by mouth 2 (two) times a day. famotidine (PEPCID) 40 mg tablet Take 1 tablet (40 mg total) by mouth 1 (one) time each day if needed for heartburn. fluticasone furoate-vilanteroL (Breo Ellipta) 200-25 mcg/dose inhaler Inhale 1 puff by mouth 1 (one) time each day. levocetirizine (XYZAL) 5 mg tablet Take 1 tablet (5 mg total) by mouth 1 (one) time each day in theevening. melatonin 5 mg tablet Take 1 tablet (5 mg total) by mouth at bedtime. montelukast (SINGULAIR) 10 mg tablet Take 1 tablet (10 mg total) by mouth at bedtime. Current Facility-Administered Medications on File Prior to Visit Medication Dose Route Frequency Provider Last Rate Last Admin doxycycline (MONODOX) capsule 100 mg 100 mg oral q12h JEFFREY Romo Social History Tobacco Use Smoking status: Never Smokeless tobacco: Never Substance Use Topics Alcohol use: Yes Comment: 3x week Drug use: Never Social History Social History Narrative Not on file Review of Systems Review of Systems Constitutional: Positive for weight gain. Negative for chills and fever. Cardiovascular: Negative for chest pain. Respiratory: Negative for cough, hemoptysis, shortness of breath and sputum production. Gastrointestinal: Negative for bloating, abdominal pain, constipation, diarrhea, dysphagia, nausea and vomiting. Physical Exam Vitals: 04/08/25 1429 BP: 137/81 BP Location: Right arm Patient Position: Sitting BP Cuff Size: Adult Pulse: 83 Temp: 36.8 ??C (98.2 ??F) TempSrc: Temporal SpO2: 97% Weight: 60.4 kg (133 lb 1.6 oz) Height: 1.664 m (65.5 ) Physical Exam Vitals reviewed. Constitutional: General: She is not in acute distress. Appearance: She is well-developed. She is not ill-appearing. HENT: Head: Normocephalic and atraumatic. Mouth/Throat: Mouth: Mucous membranes are moist. Eyes: General: Lids are normal. No scleral icterus. Cardiovascular: Rate and Rhythm: Normal rate and regular rhythm. Heart sounds: No murmur heard. Pulmonary: Effort: Pulmonary effort is normal. No accessory muscle usage or respiratory distress. Breath sounds: No wheezing, rhonchi or rales. Comments: CTA B Chest: Chest wall: No crepitus. Comments: Multiple right sided chest incisions are healing well without erythema, edema, open areas, or drainage. Abdominal: General: Bowel sounds are normal. There is no distension. Palpations: Abdomen is soft. Tenderness: There is no abdominal tenderness. Comments: There is some mild swelling on the right upper abdomen when compared to the left. Skin: General: Skin is warm and dry. Neurological: Mental Status: She is alert and oriented to person, place, and time. Psychiatric: Attention and Perception: Attention normal. Mood and Affect: Mood normal. Behavior: Behavior is cooperative. Pathology Lab Results Component Value Date FINALDX 03/23/2025 A. Lung, Right Upper Lobe, Wedge: -NECROTIZING GRANULOMATA, ZIEHL-NEELSEN STAIN POSITIVE FOR MYCOBACTERIUM -Correlation with microbiology lab results is needed -Additional pathologic diagnosis: Emphysema B. Lymph Node, Level 11, Right: -BENIGN LYMPH NODE WITH SCATTERED NON-NECROTIZING GRANULOMATA C. Lymph Node, Level 7: -BENIGN LYMPH NODE WITH SCATTERED NON-NECROTIZING GRANULOMATA D. Lymph Node, Level 10, Right: -BENIGN LYMPH NODE WITH SCATTERED NON-NECROTIZING GRANULOMATA E. Lymph Node, Level 11 #2, Right: -BENIGN LYMPH NODE WITH SCATTERED NON-NECROTIZING GRANULOMATA F. Lymph Node, Level 10 #2, Right: -BENIGN LYMPH NODE WITH REACTIVE LYMPHOID HYPERPLASIA GROSSDES 03/23/2025 A. Lung, Right Upper Lobe, Wedge: Labeled wedge lung RUL . Received fresh, for frozen section, is a 10 gram, 7.0 x 2.9 x 2.5 cm wedge of lung resection with a linear stapled parenchymal margin. The pleural surface is smooth, cho-purple and centrally blue-stained. The specimen is sectioned. The blue stained central aspect is contiguous with a a solitary, rubbery to firm cho-yellow, circumscribed, 0.9 x 0.4 x 0.4 cm nodule which is less than 0.1 cm from the pleural surface and approximately 1.1 cm from the staple line. Group Therapy Counselor sections of the nodule are submitted for frozen section. The parenchyma surrounding the noduleis heavily blue-stained. The remaining parenchyma is cho-red and spongiform. No other palpable or grossly identifiable nodules are noted. Lymph nodes are absent. Group Therapy Counselor sections are submitted in six cassettes including the entire nodule. 1-frozen section residue, sections of nodule, two pieces 2-3 remaining nodule including pleural surface and stapled parenchymal line, taken perpendicularly,one piece each 4-uninvolved parenchyma directly adjacent to nodule, one piece 5-6 random lung, two pieces each B. Lymph Node, Level 11, Right: Labeled level 11 lymph node . Received in formalin, with Telfa, is a rubbery, cho-brennan focally encapsulated, 0.45 cm in greatest diameter portion of gina tissue which has anthracotic cut surfaces. The specimen is wrapped in paper and submitted in entirety in one cassette, two pieces. C. Lymph Node, Level 7: Labeled level 7 L lymph node . Received in formalin, with Telfa, is a soft to rubbery 1.1 cm in greatest diameter disrupted, brennan-black anthracotic portion of gina tissue with minimal attached adipose tissue. The specimen is bisected, wrapped in paper and submitted in entirety in one cassette, two pieces. D. Lymph Node, Level 10, Right: Labeled level 10 lymph node . Received in formalin is a rubbery, brennan-black, focally encapsulated,0.6 cm in greatest diameter anthracotic portion of gina tissue with minimal attached adipose tissue, which is bisected, wrapped in paper and submitted in entirety in one cassette, two pieces. E. Lymph Node, Level 11 #2, Right: Labeled level 11 lymph node . Received in formalin is a rubbery, focally encapsulated, 0.9 cm in greatest diameter brennan-black anthracotic portion of gina tissue with minimal attached adipose tissuewhich is bisected, wrapped in paper and submitted in entirety in one cassette, two pieces. F. Lymph Node, Level 10 #2, Right: Labeled level 10 lymph node . Received in formalin, with Telfa, is a rubbery, brennan-black, anthracotic, 0.9 cm in greatest diameter thin portion of gina tissue with attached adipose tissue, which iswrapped in paper and submitted in toto in one cassette, one piece. TS INTRAOP 03/23/2025 A. Lung, Right Upper Lobe, Wedge: Frozen section diagnosis (one tissue block frozen) Lung, right upper lobe, wedge biopsy: Necrotizing granulomatous inflammation. No carcinoma identified in two artists' booking representative cross sections of nodule. The result was discussed with Dr. Mary Daniels on 03/23/2025. Microbiology Lab Results Component Value Date FUNGCX Negative for Fungal Growth to Date 03/23/2025 AFBSTR 03/23/2025 No Acid fast bacilli seen on direct smear (Fuchsin method, 1000x) TISSUECX No growth aerobically and anaerobically at 5 days. 03/23/2025 GRAMSTAIN 03/23/2025 No polymorphonuclear leukocytes, No epithelial cells, and No organisms noted AFBSPECI Tissue Grinding and Digestion/Decontamination 03/23/2025 ACIDFAST Negative 03/23/2025 ACIDFAST Positive (A) 03/23/2025 AFB identification with reflex to susceptibility Order: [id number] - Reflex for Order [id number] Collected 03/23/2025 12:35 Status: Preliminary result Visible to patient: No (not released) Dx: Pulmonary nodule Specimen Information: Lung, Right Upper Lobe; Tissue 0 Result Notes Component M tuberculosis complex Negative P M avium complex Positive Abnormal P Reflex ID by MALDI Not Indicated P Other P Comment: No additional identification testing is necessary. Susceptibility Testing See reflex. P Resulting Agency [facility] Narrative Performed by: [facility] Performed at: 01 - [facility] [address] [id number] Professor Of Oceanography: Priti Ellis MD, Phone: [phone] Specimen Collected: 03/23/25 12:35 EDT Last Resulted: 04/08/25 10:05 EDT Radiology I personally viewed the patient's current and past imaging studies, in addition to reviewing the dictated report from the reading radiologist. XR Chest 2 Views Narrative: XR CHEST 2 VIEWS INDICATION: s/p RUL wedge. TECHNIQUE: XR CHEST 2 VIEWS COMPARISON: No priors available. Impression: FINDINGS/IMPRESSION: Evidence of a right upper lobe wedge resection. No consolidation or effusion. No pneumothorax. No acute osseous abnormality. -------- FINAL REPORT -------- Dictated By: Sheeba Jaime Dictated Date: 04/08/2025 14:45 ET Assigned Physician: Sheeba Jaime Reviewed and Electronically Signed By: Sheeba Jaime Signed Date: 04/08/2025 14:46 ET Workstation ID: [id number] Transcribed By: Self Edit Transcribed Date: 04/08/2025 14:45 ET Assessment and Plan Problem List Items Addressed This Visit Pulmonary nodule Ms. Thornton is a 64-year-old female who had a robotic right upper lobe wedge resection on March 23, 2025. 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 Patient appears to be healing very well from her surgery. Her previous cellulitis over the right chest wall has resolved completely and there is no further indication of ongoing infection. I reassured the patient that her mild abdominal swelling should improve, if not resolved, over the next several months. I explained that this is secondary to her intercostal nerves being inflamed from surgery. I did also state that occasionally it does take upwards of a year for nerves to repair themselves. The patient follows with pulmonology at [facility]. I will have my office call over to them to get her set up with an appointment to discuss whether treatment is required for her Mycobacterium which was noted within her pulmonary nodule. Being that the patient is a non-smoker never smoker she does remain fairly low risk for developing lung cancer in the future. She should follow with her primary care physician and drying machine back tender in regards to whether ongoing CTs are necessary per their medical opinion. As for thoracic surgery, the patient may follow-up with us on an as-needed basis going forward. Mycobacterium avium infection ([facility] V24, [facility] V28) - Primary Relevant Medications doxycycline (VIBRAMYCIN) 100 mg capsule JEFFREY Shirley [facility] Thoracic Surgery [address] [place] [address], [address] [facility] [id number] documented in this encounter Plan of Treatment Not on file documented as of this encounter Visit Diagnoses Diagnosis Pulmonary nodule- Primary Other diseases of lung, not elsewhere classified Mycobacterium avium infection ([facility] V24, [facility] V28) documented in this encounter Historical Medications * This list may reflect changes made after this encounter. doxycycline (VIBRAMYCIN) 100 mg capsule Take by mouth 2 (two) times a day. 04/05/2025 added in this encounter Care Teams Cosmetics Machine Operator Relationship Specialty Start Date End Date Keila Sousa DO [facility] [address] [place] [address] PCP - General Internal Medicine 03/01/25 documented as of this encounter
[2025-04-13 09:55] VITALS: BP 102/64; PULSE 89; O2SAT 97; BMI 21.8
--- NOTE | 2025-04-13 09:55 | A.OFFVIS_ITS ---
Vital Signs 04/13/25 09:55 Height 5 ft 4.75 in Weight 130 lb BMI 21.8 BP 102/64 Blood Pressure Location Rt brachial Position Sitting Pulse 89 Pulse Source Pulse Oximeter Pulse Oximetry (%) 97 Oxygen Delivery Method Room Air Intake Visit Reasons: pulmonary nodule Allergies latex Allergy (Intermediate, Verified 04/13/25 09:58) Itching omeprazole (From Prilosec) Allergy (Intermediate, Verified 04/13/25 09:58) Rash shellfish derived Allergy (Intermediate, Verified 04/13/25 09:58) Hives venlafaxine Allergy (Intermediate, Verified 04/13/25 09:58) Confusion cats Allergy (Intermediate, Uncoded 04/13/25 09:58) Difficulty Breathing salmon Allergy (Mild, Uncoded 04/13/25 09:58) Diarrhea HPI HPI pulmonary nodule: Details: Maryjo is a pleasant 64 year old female, never smoker, with underlying asthma, environmental allergies, osteoporosis, and h/o basal cell carcinoma of right arm. At baseline, she is moderately controlled on Breo, Singulair and albuterol MDI, recently started using Airsupra daily in place of albuterol with some improvement. She does report more noticeable dyspnea on exertion and has significant allergy component. She currently denies cough, chest congestion, fever or chills. She underwent chest CT for known pulmonary nodules to assess stability and CT revealed a new RUL 12 mm with satellite lesions and referred to thoracic for further evaluation. She underwent wedge resection 03/23, negative for carcinoma however positive for MAC. She was referred to allergy who recommended allergen immunotherapy however wanted to defer until thoracic consultation. PENDING SALE TO [facility] Social History Patient Tobacco Use Status: Never used Tobacco Physical Exam Vital Signs: Last Vital Signs Pulse 89 04/13/25 09:55 BP 102/64 04/13/25 09:55 Pulse Ox 97 04/13/25 09:55 Oxygen Delivery Method Room Air 04/13/25 09:55 BMI result Body Mass Index 21.8 Assessment & Plan Assessment & Plan (1) Asthma: Code(s): J45.909 - Unspecified asthma, uncomplicated Category: Medical (2) Environmental allergies: Code(s): Z91.09 - Other allergy status, other than to drugs and biological substances Category: Medical (3) Pulmonary nodule: Code(s): R91.1 - Solitary pulmonary nodule Category: Medical (4) Allergic rhinitis: Code(s): J30.9 - Allergic rhinitis, unspecified Category: Medical Plan Maryjo recently underwent RUL wedge resection on 03/[address] Daniels for new RUL 12 mm pulmonary nodule consistent with MAC however patient denies cough/chest congestion and symptoms are more suggestive of uncontrolled asthma at this time. Respiratory symptoms have been moderately controlled on Breo 200 mcg, Singulair and AirSupra. Encouraged use of nebulized therapy and will switch Breo and Trelegy. May need to consider a biologic vs initiating allergen immunotherapy however should wait on allergen immunotherapy until asthma is better controlled. If she develops productive cough with associated congestion, may need to consider treatment of MAC at that time. Will also repeat chest CT in 6 months to ensure no recurrence of pulmonary nodules. All questions were answered and patient is in agreement of plan. Will follow up in 6-8 weeks or sooner if needed. Orders: Orders CT chest wo IV con 5 Months R91.1 - Solitary pulmonary nodule, Z98.890 - Other specified postprocedural states Coding Level of Care Code Est Pt Level 4 (99275) Complex EM visit Add On G2211 Diagnoses Asthma J45.909 Environmental allergies Z91.09 Pulmonary nodule R91.1 Allergic rhinitis J30.9
--- OUTSIDE RECORDS SUMMARY | 2025-04-13 10:30 | XMS_ITS | Clinical Summary ---
Author Organization [facility] Address [address] [place] [phone] Phone Care Team Providers Care Sea Foam Kiss Maker Name Role Phone Gladys Lopez MD Primary Care Provid er Allergies Active Allergy Reactions Criticality Noted Date Comments Latex Hives,Itching,Rash Low 01/19/2021 Omeprazole Hives 01/19/2021 Shellfish Containing Products Hives,Diarrhea Medications melatonin 5 mg Tab Take by mouth nightly at bedtime. Active diphenhydramine HCl (BENADRYL ORAL) Take by mouth. Active famotidine (PEPCID) 40 MG tablet Take 40 mg by mouth daily. Active naproxen sodium (ALEVE ORAL) Take by mouth. Active Family History Medical History Relation Comments Hypothyroidism Brother 1 No Known Problems Father 2020 - age 90; Stage 4 lung cancer and doing well Alzheimer's disease Mother early onset; age 67 Osteoporosis Mother Rheumatoid arthritis Mother Rheumatoid arthritis Sister Relation Status Comments Brother 1 Alive Brother 2 Alive Father Alive Mother Sister Alive Social History Tobacco Use Types Packs/Day Years Used Date Smoking Tobacco: Never Smokeless Tobacco: Never Alcohol Use Standard Drinks/Week Comments Yes 0 (1 standard drink = 0.6 oz pur e alcohol) glass of wine 2-3 times a week Education Answer Date Recorded Are you interested in more education? Not on pat e 01/11/2023 Are you concerned about learning? Not on file 01/11/2023 No 01/11/2023 No 01/11/2023 Digital Access Answer Date Recorded No 02/09/2023 No 02/09/2023 No 02/09/2023 Reliable internet access at home? Not on file 02/09/2023 Device with a working camera? 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 Not on file Not on file Last Filed Vital Signs Vital Sign Reading Time Taken Comments Blood Pressure 130/78 01/19/2021 1:41 PM EDT Pulse - - Temperature - - Respiratory Rate - - Oxygen Saturation - - Inhaled Oxygen Concentration - - Weight 59.4 kg (131 lb) 01/19/2021 1:41 PM EDT Height 167.6 cm (5' 6 ) 01/19/2021 1:41 PM EDT Body Mass Index 21.14 01/19/2021 1:41 PM EDT Plan of Treatment Health Maintenance Due Date Last Done Comments Adult Td,Tdap Booster 1959 LIPID PANEL 1959 DEPRESSION SCREENING 1971 HEPATITIS C SCREENING 11/22/1977 HIV ONE-TIME SCREENING (18-6 5 YEARS) 11/22/1977 MAMMOGRAM 1999 COLOGUARD 11/22/2004 COLONOSCOPY 11/22/2004 COLORECTAL CANCER SCREENING 11/22/2004 FIT TEST 11/22/2004 FOBT 11/22/2004 SIGMOIDOSCOPY 11/22/2004 VIRTUAL COLONOSCOPY 11/22/2004 PNEUMOCOCCAL VACCINES (50+ years) (1 of 1 - PCV) 11/22/2009 ZOSTER VACCINES (2 of 2) 08/13/2020 06/18/2020 COVID-19 VACCINE (3 - 2023-2 5 season) 2024 01/03/2021, 12/13/2020 OSTEOPOROSIS SCREENING INITI AL (ONE-TIME) 11/22/2024 RSV VACCINE (1 - 1-dose 75+ series) 11/22/2034 SMOKING STATUS SCREENING (On ce After 26 Yrs) Completed 01/19/2021 HEPATITIS A VACCINES Aged Out No long er eligible based on patient's age to complete this topic HIB VACCINES Aged Out No longer eligi ble based on patient's age to complete this topic MENINGOCOCCAL VACCINES (ACWY) Aged Out No longer eligible based on patient's age to complete this topic MENINGOCOCCAL VACCINES (B) Aged Out N o longer eligible based on patient's age to complete this topic Medical Devices Not on file Insurance Care Teams Sea Foam Kiss Maker Relationship Specialty Start Date End Date Gladys Lopez MD [email or web address] PCP - General Obstetrics and Gynecology 11/23/20 Additional Source Comments The information contained in this document represents components of the legal health record. It is not the complete legal health record.[facility]
== END 2025-04-13 10:42 | disposition home or self-care (01) ==
LOC: HO.HPSW 09:54
PROVIDERS: PCP Internal Medicine; Visit Provider Nurse Practitioner Family
DX: J45.909 Unspecified asthma, uncomplicated (principal); Z91.09 Other allergy status, other than to drugs and biological substances; R91.1 Solitary pulmonary nodule; J30.9 Allergic rhinitis, unspecified
CPT/HCPCS: 99214; G2211

== ENCOUNTER → 2025-04-13 09:53 | Outpatient (BNVA) | payer MEDICARE, SELFPAY | PROVIDERS: PCP Internal Medicine; Visit Provider Nurse Practitioner Family | DX: R91.1 Solitary pulmonary nodule (principal); Z91.09 Other allergy status, other than to drugs and biological substances; J45.909 Unspecified asthma, uncomplicated; Z79.899 Other long term (current) drug therapy | CPT/HCPCS: 99212 ==

== ENCOUNTER 2025-06-09 11:05 | Outpatient (REF) | payer MEDICARE, SELFPAY ==
[2025-06-09 14:35] LABS: MANUAL DIFF FLAG NO
[2025-06-09 14:40] LABS: Hematocrit 40.3 % (37.0-47.0); Hemoglobin 13.3 g/dl (12.0-16.0); Imm Gran Abs Auto 0.01 X10*3/uL (0.00-0.03); Imm Gran Pct Auto 0.2 % (0.0-0.4); Lymphocytes Absolute Auto 1.3 X10*3/uL (1.2-4.9); Mean Corpuscular HGB Conc 33.0 g/dl (31.0-35.0); Mean Corpuscular Hemoglobin 31.3 pg (27.0-33.0); Mean Corpuscular Volume 94.8 fL (80.0-98.0); NRBC Abs Auto 0.000 X10*3/uL (0.0-0.012); NRBC Pct Auto 0.0 /100WBC (0.0-0.2); Platelet Count 261 X10*3/uL (160-400); Red Blood Count 4.25 X10*6/uL (4.20-5.50); White Blood Count 6.5 X10*3/uL (4.8-10.8)
== END 2025-06-09 11:06 | disposition home or self-care (01) ==
LOC: HO.WFDLDS 11:05
PROVIDERS: PCP Internal Medicine; Visit Provider Nurse Practitioner Family
DX: J45.909 Unspecified asthma, uncomplicated (principal); R91.1 Solitary pulmonary nodule; Z91.09 Other allergy status, other than to drugs and biological substances
CPT/HCPCS: 36415; 82785; 85025; 99212

== ENCOUNTER 2025-06-09 11:05 | Outpatient (AMB) | payer MEDICARE, SELFPAY ==
--- OUTSIDE RECORDS SUMMARY | 2025-05-30 15:43 | XMS_ITS ---
Author Organization [facility] Address [facility] [place], [place] [id number] Care Team Providers Care Safety Compliance Specialist Name Role Phone JACE TORRES Primary Care Provide r [phone] JEREMIE CUI [phone] REASON FOR VISIT Results of Thyroid Ultrasound Encounters Encounter Location Date Provider Diagnosis [address] [address] 05/30/2025 JACE TORRES PLAN OF TREATMENT Next Appt Details Provider Name:CHARISSE Gonzalez, 12/29/2025 09:00:00 AM, [address] [place] [address], [phone], Provider Name:JACE DÍAZ, 12/29/2025 09:30:00 AM, [address] [place] [address], [phone],
--- OUTSIDE RECORDS SUMMARY | 2025-05-31 07:13 | XMS_ITS ---
Author Organization [facility] Address [facility] [place], [place] [id number] Care Team Providers Care Chain Maker Hand Name Role Phone JACE TORRES Primary Care Provide r [phone] JEREMIE CUI [phone] REASON FOR VISIT (2) Results of Thyroid Ultrasound/ speak to pt Encounters Encounter Location Date Provider Diagnosis [address] [address] 05/31/2025 JACE TORRES PLAN OF TREATMENT Next Appt Details Provider Name:CHARISSE Gonzalez, 12/29/2025 09:00:00 AM, [address] [place] [address], [phone], Provider Name:JACE DÍAZ, 12/29/2025 09:30:00 AM, [address] [place] [address], [phone],
--- OUTSIDE RECORDS SUMMARY | 2025-05-31 07:25 | XMS_ITS ---
Author Organization [facility] Address [facility] [place], [place] [id number] Care Team Providers Care Filament Shaper Name Role Phone JACE TORRES Primary Care Provide r [phone] JEREMIE CUI [phone] REASON FOR VISIT RE:Results of Thyroid Ultrasound Encounters Encounter Location Date Provider Diagnosis [address] [address] 05/31/2025 JACE TORRES PLAN OF TREATMENT Next Appt Details Provider Name:CHARISSE Gonzalez, 12/29/2025 09:00:00 AM, [address] [place] [address], [phone], Provider Name:JACE DÍAZ, 12/29/2025 09:30:00 AM, [address] [place] [address], [phone],
--- OUTSIDE RECORDS SUMMARY | 2025-06-03 12:32 | XMS_ITS ---
Author Organization [facility] Address [facility] [place], [place] [id number] Care Team Providers Care Group Sales Coordinator Name Role Phone JACE TORRES Primary Care Provide r [phone] JEREMIE CUI [phone] REASON FOR VISIT Returning Call Encounters Encounter Location Date Provider Diagnosis [address] [address] 06/03/2025 JACE TORRES PLAN OF TREATMENT Next Appt Details Provider Name:CHARISSE Gonzalez, 12/29/2025 09:00:00 AM, [address] [place] [address], [phone], Provider Name:JACE DÍAZ, 12/29/2025 09:30:00 AM, [address] [place] [address], [phone],
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
[2025-06-09 11:03] VITALS: BP 108/70; PULSE 85; O2SAT 98; BMI 22.3
--- NOTE | 2025-06-09 11:03 | MHC.OFFVIS ---
Vital Signs 06/09/25 11:03 Height 5 ft 4.75 in Weight 133 lb 2 oz BMI 22.3 BP 108/70 Blood Pressure Location Rt brachial Position Sitting Pulse 85 Pulse Source Pulse Oximeter Pulse Oximetry (%) 98 Oxygen Delivery Method Room Air Intake Visit Reasons: pulmonary nodule Allergies latex Allergy (Intermediate, Verified 06/09/25 11:07) Itching omeprazole (From Prilosec) Allergy (Intermediate, Verified 06/09/25 11:07) Rash shellfish derived Allergy (Intermediate, Verified 06/09/25 11:07) Hives venlafaxine Allergy (Intermediate, Verified 06/09/25 11:07) Confusion cats Allergy (Intermediate, Uncoded 06/09/25 11:07) Difficulty Breathing salmon Allergy (Mild, Uncoded 06/09/25 11:07) Diarrhea HPI HPI pulmonary nodule: Details: Maryjo is a pleasant 64 year old female, never smoker, with underlying asthma, environmental allergies, osteoporosis, and h/o basal cell carcinoma of right arm. She underwent chest CT for known pulmonary nodules to assess stability and CT revealed a new RUL 12 mm with satellite lesions and referred to thoracic for further evaluation. She underwent wedge resection 03/23, negative for carcinoma however positive for MAC. We discussed monitoring symptoms instead of treatment given her symptoms are more suggestive of uncontrolled asthma rather than infectious. Denies productive cough or chest congestion. She was also seen by allergy/immunology, recently had immune work up and will be following with provider later this week. We had previously discussed initiating a biologic however would like to hold off until appt with allergy. She reports moderate control of respiratory symptoms on current regimen. [facility] Social History Patient Tobacco Use Status: Never used Tobacco Review of Systems Const Denies chills, Denies excessive sweating, Denies fever(s), Denies headache(s) and Denies night sweats Eyes Denies dry eyes, Denies irritation and Denies itchy eyes ENT Reports Normal hearing present, Denies headache(s), Denies nasal congestion, Denies nasal discharge, Denies post nasal drip and Denies sore throat Card Denies chest pain, Denies chest pain at rest, Denies chest pain with activity, Denies claudication, Denies leg edema, Denies dyspnea, Denies orthopnea and Denies paroxysmal nocturnal dyspnea Resp Denies chest congestion, Denies excessive phlegm production, Denies pain on inspiration, Denies pain with cough, Denies dyspnea, Denies stridor and Denies wheezing Musc Denies myalgias Neuro Reports Normal hearing present and Denies headache(s) Endo Denies excessive sweating Adrien/Lymph Denies lymphadenopathy Aller/Immun Denies itchy eyes, Denies seasonal rhinorrhea and Denies wheezing Physical Exam Vital Signs: Last Vital Signs Pulse 85 06/09/25 11:03 BP 108/70 06/09/25 11:03 Pulse Ox 98 06/09/25 11:03 Oxygen Delivery Method Room Air 06/09/25 11:03 BMI result Body Mass Index 22.3 Const General: cooperative, healthy appearing, comfortable, no acute distress, well developed and alert Orientation/consciousness: patient oriented x3 Limitations: no limitations HEENT Head: Yes normal to inspection, Yes normocephalic and Yes atraumatic Ears: hearing grossly normal bilaterally and external ears normal Eyes General: appearance normal, both eyes and all related structures Eyelids: Yes eyelids normal Sclerae: sclerae normal EOM: EOMs intact bilaterally Neck Neck: Yes normal visual inspection and Yes no lymphadenopathy Lymphatic: no lymphadenopathy noted Chest Chest palpation & inspection: normal inspection of the chest Resp Effort & Inspection: normal respiratory effort, able to speak in complete sentences, no audible wheezes, no cough, no stridor, not tachypneic, no tripod positioning and no use of accessory muscles Auscultation: clear to auscultation bilaterally Cardio Jugular venous distension: no JVD Rate: regular rate Rhythm: regular rhythm Skin Other: warm, dry General skin exam: no rashes or lesions noted Neuro General: patient oriented x3 Cranial nerves: Yes Normal hearing present Cognition (Neuro): normal cognition Gait exam (Neuro): Normal gait present Extrem General: Yes normal to inspection, Yes capillary refill normal, Yes no clubbing, cyanosis or edema and Yes no pedal edema Psych Appearance: grossly normal and well kempt Speech and movement: Normal speech and movement present and Clear speech present Affect: normal affect Attitude: cooperative Thought process: Normal thought process present Thought content: Normal thought content present Insight: Good insight present (Psych) Judgement: Good judgement present (Psych) Assessment & Plan Assessment & Plan (1) Asthma: Code(s): J45.909 - Unspecified asthma, uncomplicated Category: Medical (2) Environmental allergies: Code(s): Z91.09 - Other allergy status, other than to drugs and biological substances Category: Medical (3) Pulmonary nodule: Code(s): R91.1 - Solitary pulmonary nodule Category: Medical (4) Allergic rhinitis: Code(s): J30.9 - Allergic rhinitis, unspecified Category: Medical Plan Discussed with Maryjo, awaiting initiation of biologic until she reviews complete immune work up with allergy. She continues with poorly controlled asthma and would likely benefit from Xolair vs Dupixent. Will send for CBC to assess eosinophilic component and IgE testing today. Previously patient underwent RUL wedge resection on 03/[address] Daniels for new RUL 12 mm pulmonary nodule consistent with MAC however patient denies cough/chest congestion and symptoms are more suggestive of uncontrolled asthma at this time. If she develops productive cough with associated congestion, may need to consider treatment of MAC at that time. Will also repeat chest CT in 6 months to ensure no recurrence of pulmonary nodules, order previously placed. All questions were answered and patient is in agreement of plan. Will follow up in 6-8 weeks or sooner if needed. Orders: Orders Immunoglobulin E 06/09/25 Z91.09 - Other allergy status, other than to drugs and biological substances Complete Blood Count Auto Diff 06/09/25 Z91.09 - Other allergy status, other than to drugs and biological substances Coding Level of Care Code Est Pt Level 4 (21122) Diagnoses Asthma J45.909 Environmental allergies Z91.09 Pulmonary nodule R91.1 Allergic rhinitis J30.9
--- OUTSIDE RECORDS SUMMARY | 2025-06-09 14:14 | XMS_ITS | Clinical Summary ---
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 PCP - General Obstetrics and Gynecology 11/23/20 Additional Source Comments The information contained in this document represents components of the legal health record. It is not the complete legal health record.[facility]
--- OUTSIDE RECORDS SUMMARY | 2025-06-09 14:14 | XMS_ITS | Patient Health Record ---
Author Organization [facility] Address [facility] [place], [place] [id number] Care Team Providers Care Jacket Preparer Name Role Phone JACE TORRES Primary Care Provide r [phone] JEREMIE CUI [phone] ALLERGIES Allergen (clinical drug ingredient) Drug/Non Drug Allergy documented on EMR Reaction Allergy Type Onset Date Status PriLOSEC OTC body rash Drug Allergy Acti ve Etta diarrhea Drug Allergy Active Latex Latex itchy contact reaction Allergy Active Pollen (e.g. tree, grass) Unknown Allergy Active Shellfish (FN) Shellfish-derived Products diarrhea, hives Drug Allergy Active venlafaxine Venlafaxine loopy -for menopausal symptoms Drug Allergy Active REASON FOR REFERRAL Reason (faxed 12/27/24) any neuro for eval and tx of worsening head tremor Diagnosis 1 Benign head tremor ( G25.0) Referral Organization [facility] [place] [employer] [facility] Referring Provider First Name JACE Referring Provider Last Name MARIA EUGENIA GARCES Referring Provider Speciality Internal M edicine Referred Organization [facility] Referred Provider Specialty Neurology General Notes Yary RICE [place] 12/15 08:53:35 PM > faxed to [phone] Clinical Notes JACE TORRES 06/04/2025 08:37:28 AM >pt seen by [facility] chagned to addressed Referral Priority Routine Reason (faxed 12/31/24) prev iously established pt Dr Villavicencio eval and tx bursitis Diagnosis 1 Trochanteric bursiti s of left hip (M70.62) Referral Organization [facility] [employer] Referring Provider First Name JACE Referring Provider Last Name JEFFDEANN GARCES Referring Provider Speciality Internal edicine Referred Organization [facility] Referred Provider JOSUE VILLAVICENCIO Referred Address alt F# [phone], Referred Provider Specialty Rheumatology General Notes Yary RICE [place] 12/15 10:25:57 AM > pt previously saw Dr Villavicencio. pt asking for new ref as it has been 3 years since she was seen by [facility]. , faxed ref to [phone], i have also placed a copy into the mail for pt Referral Priority Routine Reason (faxed 06/04/25) for eval of multinodular goiter Diagnosis 1 Multinodular goiter (E04.2) Referral Organization [facility] [employer] Referring Provider First Name JACE Referring Provider Last Name LAILAKIRTIDEANN GARCES Referring Provider Speciality Internal edicine Referred Provider MARIAN GILLIAM Referred Provider Specialty Endocrinolog y General Notes Yary RICE [place] 05/17 09:08:27 AM > faxed referral to Dr Nancy Garcia's , f: [phone] Referral Priority Routine MEDICATIONS Medication SIG (Take, Route, Frequency, Duration) Notes Start Date End Date Status ZyrTEC Allergy 10 MG 1 tablet Orally Onc e a day for 30 day(s) Active Alendronate Sodium 70 MG 1 TABLET 30 MIN UTES BEFORE THE FIRST FOOD, BEVERAGE OR MEDICINE OF THE DAY WITH PLAIN WATER ORALLY 84 DAYS for 84 Active Trelegy Ellipta 200-62.5-25 MCG/ACT 1 puff Inhalation Once a day Active Airsupra 90-80 MCG/ACT 2 puffs as needed Inhalation Six times a day Active Atorvastatin Calcium 20 MG 1 tablet Oral ly Once a day for 90 days dose change Active Pepcid Complete 10-800-165 MG 1 tab(s) orally every 12 hours prn Active Melatonin 5 MG 1 tab(s) orally once daily after supper(prn) 01/29/2018 Active Fiber Adult Gummies 2 GM as directed Orally Active Singulair 10 MG 1 tablet Orally Once a day for 30 day(s) Active diphenhydrAMINE HCl 25 MG 1 capsule at b edtime as needed Orally Once a day for 30 day(s) Active IMMUNIZATIONS Vaccine Route Administration Date Status Comme nts Covid IM Intramuscular 06/29/2024 Administered FLU- FLUVIRIN, PRE-FILLED SYRINGE 0.5 ml Unknown 06/05/2013 Administered FLU- FLUVIRIN, PRE-FILLED SYRINGE 0.5 ml IM Intramuscular 08/11/2014 Administered Flucelvax Influenza Vaccine Quad IM Intramuscular 06/29/2024 Administered Hepatitis A (adult) Unknown 02/12/2007 Administered Hepatitis B, Adult Unknown 09/24/2008 Administered Hepatitis B, Adult Unknown 11/22/2008 Administered Hepatitis B, Adult Unknown 03/24/2009 Administered Influenza, Flublok IM Intramuscular 07/09/2019 Administere d Influenza, Fluzone Quad.5 ml, IM Intramuscular 08/13/2018 Administered Poliovirus (IPV) Unknown 02/12/2007 Administered RSV,recombinant,protein subunit,RSVpreF, adjuvant IM Intramuscular 09/23/2023 Administered Tdap (Adacel) Unknown 06/05/2013 Administered Tdap (Adacel) IM Intramuscular 12/13/2022 Administered Typhoid (ViCPs) Unknown 02/12/2007 Administered Zoster recombinant IM Intramuscular 09/23/2023 Administere d SOCIAL HISTORY Tobacco Use: Social History Observation Description Date Details (start date - stop date) Never Smoker NA - NA Sex Assigned At : Social History Observation Description Sex Assigned At Unknown Smoking Question Answer Notes Are you a: never smoker Section Notes: never smoked never smoked never smoked never smoked never smoked never smoked never smoked never smoked never smoked never smoked never smoked never smoked never smoked never smoked never smoked never smoked never smoked never smoked never smoked never smoked never smoked never smoked never smoked never smoked never smoked never smoked never smoked never smoked never smoked never smoked PROBLEMS Problem Type ICD Code Onset Dates Problem Status W/U Status Risk SNOMED Code Notes Problem Snoring (R06.83) Active confirmed 66986 001 Problem GERD without esophagitis (K21.9) Active confirmed 539597619 Problem Pulmonary nodule (R91.1) 2024 Active confirmed 546249748 [facility]; new pulm nodule, PET recommended Problem Thyroid nodule (E04.1) Active confirmed 197574359 Problem MONICA (obstructive sleep apnea) (G47.33) Active confirmed 24689964 Problem Personal history of colonic polyps (Z86.010) Active confirmed History of poly p of colon (situation) (757173360) Problem Rash and nonspecific skin eruption (R21) Active confirmed 937142314 Problem Multinodular goiter (E04.2) Active confirmed 964165231 Problem Abnormal mammogram (R92.8) Active confirmed 983004172 Problem Mixed hyperlipidemia (E78.2) Active confirmed 153462425 Problem Age-related osteoporosis without current pathological fracture (M81.0) Active confirmed 16255274 Problem Elevated C-reactive protein (CRP) (R79.82) Active confirmed 194580402680918 Problem Sleep disturbance (G47.9) Active confirmed 78197450 Problem Family history of thoracic aortic aneurysm (Z82.49) Active confirmed 071005339 Problem Atrophic vaginitis (N95.2) Active confirmed 87507835 Problem Family hx of colon cancer (Z80.0) Active confirmed 476208256 Problem Trochanteric bursitis of left hip (M70.62) Active confirmed Trochanteric bursitis of left hip (468686625291973) Problem Environmental allergies (Z91.09) Active confirmed 148942098 Problem Benign head tremor (G25.0) Active confirmed 936877265 Problem JENAE (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) (A31.0) Active confirmed 033018220 Problem Menopausal syndrome (N95.1) Active confirmed 552835611 Problem History of basal cell carcinoma (Z85.828) Active confirmed 690073841 Problem Cervical dystonia (G24.3) Active confirmed 671894300 Problem Vitreous floaters of right eye (H43.391) Active confirmed 77521016 Problem Pure hypercholesterole demetria (E78.00) Active confirmed Pure hypercholesterolemi a (133049624) Problem High cholesterol (E78.00) Active confirmed 97650611 Problem Osteoporosis without current pathological fracture, unspecified osteoporosis type (M81.0) Active confirmed 80228447 Problem Dyslipidemia (E78.5) Active confirmed 366704178 Problem Ankle swelling, unspecified laterality (M25.473) Active confirmed 777096533 Problem Reactive airway disease without complication, unspecified asthma severity, unspecified whether persistent (J45.909) Active confirmed 246157945456 Problem Severe persistent asthma without complication (J45.50) Active confirmed 556097440 Problem Moderate persistent asthma, unspecified whether complicated (J45.40) Active confirmed 671561937 Problem Moderate persistent asthma with exacerbation (J45.41) Active confirmed 117899204 Problem Allergic rhinitis due to other allergic trigger, unspecified seasonality (J30.89) Active confirmed 13545090 Problem Left hip crepitus (M24.852) Active confirmed 819545056 Problem Dental root implant present (Z97.2) Active confirmed 092286697 VITAL SIGNS Blood pressure diastolic 80 mm Hg 05/07/2025 Height 64.75 in 05/07/2025 Blood pressure systolic 122 mm Hg 05/07/2025 Weight 131 lbs 05/07/2025 BMI 21.97 kg/m2 05/07/2025 Encounters Encounter Location Date Provider Diagnosis [place] [phone] 09/24/2024 JACE TORRES [place] [phone] 12/03/2024 JACE TORRES [place] [address] 12/22/2024 JACE TORRES Medicare annual wellness visit, initial Z00.00 ; Environmental allergies Z91.09 ; High cholesterol E78.00 ; Osteoporosis without current pathological fracture, unspecified osteoporosis type M81.0 ; Benign head tremor G25.0 ; Family hx of colon cancer Z80.0 ; GERD without esophagitis K21.9 ; Dental root implant present Z97.2 ; Moderate persistent asthma with exacerbation J45.41 and Encounter for screening mammogram for malignant neoplasm of breast Z12.31 [facility] [address] [place] [phone] 12/22/2024 JACE TORRES [address] [address] 12/22/2024 JACE TORRES [address] [address] 12/31/2024 JACE TORRES [address] [address] 01/18/2025 JACE TORRES [place] [phone] 03/21/2025 JACE KSENIAAKCOLASACCO [facility] [address] [address] 03/30/2025 JACE KSENIAAKCOLASACCO [address] [address] 05/05/2025 JACE KSENIAAKCOLASACCO [address] [address] 05/06/2025 JACE MCCORMACKAKCOLASACCO [address] [address] 05/07/2025 JACE ROSADOCOAARONACCO JENAE (mycobacterium avium-intracellular e) A31.0 ; Moderate persistent asthma, unspecified whether complicated J45.40 ; Thyroid nodule E04.1 ; Environmental allergies Z91.09 ; Dyslipidemia E78.5 and Age-related osteoporosis without current pathological fracture M81.[address] [address] 05/10/2025 JACE MCCORMACKAKCOLASACCO [address] [address] 05/30/2025 JACE MCCORMACKAKCOLASACCO [address] [address] 05/31/2025 JACE KSENIAAKCOLASACCO [address] [address] 05/31/2025 JACE ROSADOCOLASACCO [facility] [address] [address] 06/03/2025 JACE MCCORMACKAKCOLASACCO [address] [address] 06/04/2025 JACE ROSADOCOLASACCO Multinodular goiter E04.2 ; Severe persistent asthma without complication J45.50 ; Allergic rhinitis due to other allergic trigger, unspecified seasonality J30.89 and Cervical dystonia G24.3 ASSESSMENTS Encounter Date Diagnosis Assessment Notes Treatment Notes Treatment Clinical Notes Section Notes 06/04/2025 Multinodular goiter (ICD-10 - E04.2) 05/07/2025 JENAE (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) (ICD-10 - A31.0) asymp will cont to monitor w/ pulm and CT scans hopefully surgery was curative 12/22/2024 Medicare annual wellness visit, initial (ICD-10 - Z00.00) utd prevnar 20 shingles vac x 2 ecg read by me nsr rate 82, no prev for comp. low amp in aVL adn V2 12/22/2024 Environmental allergies (ICD-10 - Z91.09) cont prn meds is considering seeing database management specialist to resume allergy shots 05/07/2025 Moderate persistent asthma, unspecified whether complicated (ICD-10 - J45.40) cont fu w/ pulm for treatment they've been adjusting regimen and short term fu and imaging planned (poss dupixent in future but they would coordinate w/ database management specialist) 06/04/2025 Severe persistent asthma without complication (ICD-10 - J45.50) 05/07/2025 Thyroid nodule (ICD-10 - E04.1) us ordered for eval (at [facility]) 12/22/2024 High cholesterol (ICD-10 - E78.00) Continue atorvastatin and heart healthy diet we will check fasting lipids. 06/04/2025 Allergic rhinitis due to other allergic trigger, unspecified seasonality (ICD-10 - J30.89) 12/22/2024 Osteoporosis without current pathological fracture, unspecified osteoporosis type (ICD-10 - M81.0) has been nervous about therapy d/t dental implants but doing well on alendronate x 3 yrs. 05/07/2025 Environmental allergies (ICD-10 - Z91.09) cont fu and tx w/ database management specialist for this and immune workup as well notes requested 06/04/2025 Cervical dystonia (ICD-10 - G24.3) 12/22/2024 Benign head tremor (ICD-10 - G25.0) Feels that this is worsening and is interested in seeing neurology to discuss possible treatments. Referral was placed. 05/07/2025 Dyslipidemia (ICD-10 - E78.5) cont statin and haert healthy diet and will monitor fasting lipids 12/22/2024 Family hx of colon cancer (ICD-10 - Z80.0) utd w/ screen 05/07/2025 Age-related osteoporosis without current pathological fracture (ICD-10 - M81.0) tolerating tx well will cont as directed 12/22/2024 GERD without esophagitis (ICD-10 - K21.9) Is not having any concerning symptoms. 12/22/2024 Dental root implant present (ICD-10 - Z97.2) She feels she is actually doing quite well in terms of her previous dental implants. No concerns. 12/22/2024 Moderate persistent asthma with exacerbation (ICD-10 - J45.41) no wheezing on exam today but given her history and complaints have treated with a prednisone taper which she has taken before. Have reviewed medication, possible side effects, use of medication. If any persistence change or worsening she will call to let me know. She will follow-up with pulmonary as planned. 12/22/2024 Encounter for screening mammogram for malignant neoplasm of breast (ICD-10 - Z12.31) order slip given 05/07/2025 Other will schedule mammogram when chest wall heals 06/04/2025 Other dox video lasting 12 min 12/22/2024 Other Patient is seen today for a routine physical. As part of this visit we reviewed the following issues, which are considered and essential part of preventative health in this age group: - Breast Cancer screening for high risk individuals -utd - Blood pressure screening annually - performed - Cholesterol screening every five years ordered - Osteoporosis prevention including calcium/vitamin D intake, weight bearing exercise & smoking cessation - Nutritional and exercise counseling - patient was advised to work on [employer] - Counseling of injury prevention including fire prevention, smoke alarms and seat belt usage - Screening for depression - denies - Screening for domestic abuse - Screening for Type 2 diabetes mellitus in those with HTN and/or HLD - Prevention of and/or testing for infectious diseases, which may include Chlamydia Gonorrhea, Syphilis, HIV, Hepatitis C, and Tuberculosis - Education about skin cancer - Recommendations about immunizations - rec prevnar 20 - Recommendation of an eye exam for glaucoma once in this age range - patient utd - Screening for substance abuse (including tobacco, alcohol, and recreational drugs) denies - Genetic cancer risk screening - In addition to reviewing these issues, I have reviewed the following sections of the chart: family history, social history, surgical history, allergies, and past medical history. Health Risk Assessment reviewed with patient and scanned into chart. PLAN OF TREATMENT Pending Test Test Name Order Date Echocardiogram 05/25/2021 Echocardiogram 06/02/2021 XR HIP 2 VIEWS LEFT 07/29/2014 US Breast Diagnostic Right, Perform US guided aspiration and/or biopsy if warranted 02/05/2022 US Doppler Extremity Lower Venous Bilat 05/12/2021 Future Test Test Name Order Date Echocardiogram 01/29/2018 LIPID PROFILE 02/14/2019 CBC W/ AUTOMATED DIFF 02/14/2019 COMP. METABOLIC 02/14/2019 CRP hs 02/14/2019 MMR (IgG) Panel (Measles, Mumps, Rubella ) 06/24/2019 Echocardiogram 07/09/2019 Bone density 2020 Mammogram, bilateral, screening 11/24/19 21 CBC W/ AUTOMATED DIFF 05/23/2021 LIPID PROFILE 12/06/2021 LIPID PROFILE 11/29/2022 AST ( SGOT) 11/29/2022 BASIC METABOLIC PANEL 11/29/2022 25 OH Vitamin D 11/29/2022 ALT (SGPT) 11/29/2022 Mammogram Screening Bilatera l, Perform ultrasound guided aspiration and/or breast biopsy if warranted 02/22/2025 [id number] 05/07/2025 Hepatic Function Panel [id number] LP+Non-HDL Cholesterol-[id number] 05/07/2025 Next Appt Details Provider Name:CHARISSE Gonzalez, 12/29/2025 09:00:00 AM, [address] [place], [address], Provider Name:JACE DÍAZ, 12/29/2025 09:30:00 AM, [address] [place], [address], Insurance Providers Payer Name Payer Address Payer Phone Subscriber Number Group Number Insured Name Patient Relationship to Insured Coverage Start Date Coverage End Date MEDICARE [employer] [address] [place] [phone] [id number] DELROY ROBINS Self - patient is the insured [facility] [address] [place] [address] [id number] DELROY ROBINS Self - patient is the insured MEDICAL (GENERAL) HISTORY Medical History History ICD Code FAmHx colon neoplasia-Colon-rare tics,6mm polyp desxc ghotf-Krnf-SKw=tub adenoma-//Colon01/15/12-n//Colon01/20/18=Ext hemm and tags,Few sigm tics, 1cm sessile sigm polyp@25cm PAth TubAdenoma-dictlRec [id number] allergies hay fever HPV-treated with cone biopsy age 43 Hypercholesterolemia 11/21 wi th LDL 137; ldl 159 in 05/29 with [place] risk 3.3%; 07/30 ACC/AHA 10 year CV risk 1.7% with 249/98/62/167; ACC/AHA CV risk 2.1% with LDL 176 in 01/31 basal cell carcinoma Hep B surface antibody positive 05/29-vac cinated Hep C antibody negative 05/2013 Health Care Proxy is -prior to 01/29/18 Resting head tremor dx 01/29/18-fine Mixed urinary incontinence per Dr Thompson -no tx moderate MONICA on sleep study 12/2020 oral bone grafts and surgeries planned f or 08/2021 Osteoporosis cervical dystonia Surgical History Surgery Date(Month/Year) lung resection 03/23/25 colonoscopy 11/2024 Basal cell bone rebuild jaw 12/2021 bone graft lower lip/jaw 07/2021 Bone graft above lip 2015 Basal cell carcinoma removed from RT arm and frozen off left upper chest-Dr Suazo cervical polyps removed in office-Dr Franklin rees summer 2012 Strabismus repair OD age 1 D & C 04/2006 Hospitalization History Reason Date(Month/Year) [facility] : elevated ddimer swollen l egs 05/12/21
--- OUTSIDE RECORDS SUMMARY | 2025-06-09 14:14 | XMS_ITS | Clinical Summary ---
Author Organization [facility] [place] [address] Phone Care Team Providers Care Photovoltaic Installer Name Role Phone Keila Sousa DO Primary Care Pro vider Allergies Active Allergy Reactions Criticality Noted Date Comments Latex Hives,Itching,Rash Low 01/19/2021 Omeprazole Hives Medium 01/19/2021 Shellfish Derived Diarrhea Medium 03/23/2025 Medications albuterol HFA (PROAIR HFA ; PROVENTIL HFA ; VENTOLIN HFA) 90 mcg/actuation inhaler Inhale 2 puffs by mouth every 4 (four) hours if needed for shortness of breath or wheezing. 5 Active alendronate (FOSAMAX) 70 mg tablet Take 1 tablet (70 mg total) by mouth every 7 (seven) days. Takes on Mondays Active famotidine (PEPCID) 40 mg tablet Take 1 tablet (40 mg total) by mouth 1 (one) time each day if needed for heartburn. Active melatonin 5 mg tablet Take 1 tablet (5 mg total) by mouth at bedtime. 1 Active montelukast (SINGULAIR) 10 mg tablet Take 1 tablet (10 mg total) by mouth at bedtime. Active levocetirizine (XYZAL) 5 mg tablet Take 1 tablet (5 mg total) by mouth 1 (one) time each day in the evening. 5 Active fluticasone furoate-vilante roL (Breo Ellipta) 200-25 mcg/dose inhaler Inhale 1 puff by mouth 1 (one) time each day. Active albuterol 2.5 mg /3 mL (0.083 %) nebulizer solution Take 3 mL (2.5 mg total) by nebulization every 6 (six) hours if needed for wheezing. Active Airsupra 90-80 mcg/actuation inhaler Inhale 2 puffs by mouth 2 (two) times daily morning and afternoon. 5 Active atorvastatin (LIPITOR) 20 mg tablet Take 1 tablet (20 mg total) by mouth 1 (one) time each day. for 90 days 5 Active doxycycline (VIBRAMYCIN) 100 mg capsule Take by mouth 2 (two) times a day. 5 Active Active Problems Problem Noted Date Diagnosed Date Mycobacterium avium infection ([facility] V24, [facility] V28) 04/11/2025 Pulmonary nodule 03/01/2025 Assessment & Plan (04/11/2025 9:40 AM EDT): Ms. Thorntno is a 64-year-old female who had a robotic right upper lobe wedge resection on March 23, 2025. 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 Patient appears [...] themselves. The patient follows with pulmonology at [facility]. I will have my office call [...] follow with her primary care physician and media producer in regards to whether ongoing CTs are necessary per their medical opinion. As for thoracic surgery, the patient may follow-up with us on an as-needed basis going forward. Encounters Date Type Department Care Team Description 05/14/2025 7:19 AM EDT - 05/14/2025 11:59 PM EDT Hospital Encounter [facility] Ultrasound [address] [place] [address] Thyroid nodule Discharge Disposition: Home or Self Care 04/08/2025 2:30 PM EDT Office Visit Thoracic Surgery - [place] [address] [facility] [address] [place] [address] Radha Hathaway PA Pulmonary nodule (Primary Dx); Mycobacterium avium infection (CMS/HCC V24, CMS/HCC V28) 04/08/2025 2:09 PM EDT - 04/08/2025 11:59 PM EDT Hospital Encounter [facility] Xray [address] [place] [address] Pulmonary nodule Discharge Disposition: Home or Self Care 04/05/2025 Telephone Thoracic Surgery - [place] [address] [facility] [address] [place] [phone] Kandi Nguyễn DE 03/23/2025 11:30 AM EDT - 03/23/2025 3:00 PM EDT Surgery [facility] Main OR [address] [place] [address] Mary Daniels MD Navigation bronchoscopy w/dye marking, Lazaro right upper lobe wedge, mediastinal lymphadenectomy [09060 (CPT ) +5 more] 03/23/2025 11:15 AM EDT Anesthesia Event [facility] Main OR [address] [place] [address] Reji Gaines MD Hard, Joanna, SAURABH 03/23/2025 9:36 AM EDT - 03/24/2025 5:09 PM EDT Hospital Encounter [facility] Intermediate Care Unit [address] [place] [address] Mary Daniels MD Seralathan, Manikandan, MD Pulmonary nodule Discharge Disposition: Home or Self Care 03/16/2025 9:00 AM EDT Ancillary Procedure Pulmonology - [place] [address] [facility] [address] [place] [phone] Pulmonary nodule 03/16/2025 Telephone Pulmonology - [address] [place] [address] Emma Hays RN from Last 3 Months Surgical History Surgery Date Site/Laterality Comments DILATION AND CURETTAGE OF UTERUS BONE GRAFT lower gum Medical History Medical History Date Comments PONV (postoperative nausea and vomiting) Hyperlipidemia Asthma Shortness of breath Lung nodule Cervical dystonia GERD (gastroesophageal reflux disease) Colon polyps Streptococcal arthritis of b oth hands ([facility] V24, [facility] V28) Streptococcal arthritis of f oot, unspecified laterality ([facility] V24, [facility] V28) Sleep apnea intolerant to CP AP Family History Medical History Relation Name Comments Lung cancer Father Lung cancer Father's Brother Lung cancer Father's Sister Lung cancer Paternal Grandfather Relation Name Status Comments Father Father's Brother Father's Sister Paternal Grandfather Social History Tobacco Use Types Packs/Day Years Used Date Smoking Tobacco: Never Smokeless Tobacco: Never Tobacco Cessation:Counseling Given: Not Answered Alcohol Use Standard Drinks/Week Comments Yes 0 [...] Orientation Straight 02/24/2025 9: 29 AM EDT Obstetrics History Last Filed Vital Signs Vital Sign Reading Time Taken Comments Blood Pressure 137/81 04/08/2025 2:29 PM EDT Pulse 83 04/08/2025 2:29 PM EDT Temperature 36.8 C (98.2 F) 04/08/2025 2:29 PM EDT Respiratory Rate 18 03/24/2025 3:56 PM EDT Oxygen Saturation 97% 04/08/2025 2:29 PM EDT Inhaled Oxygen Concentration - - Weight 60.4 kg (133 lb 1.6 oz) 04/08/2025 2:29 P M EDT Height 166.4 cm (5' 5.5 ) 04/08/2025 2:29 PM EDT Body Mass Index 21.81 04/08/2025 2:29 PM EDT Plan of Treatment Health Maintenance Due Date Last Done Comments Breast Cancer Screening 1960 Pneumococcal Vaccine: 50+ Years (1 of 2 - PCV) 11/22/1978 Cervical Cancer Screening: Pap Smear 11/22/1980 IPV Vaccines (2 of 3 - Adult catch-up series) 03/12/2007 02/12/2007 Hepatitis B Vaccines (3 of 3 - 19+ 3-dose series) 07/22/2008 02/24/2008, 01/20/2008 Depression Screening 09/16/2024 Cholesterol Screening (Lipid Panel) 02/09/2025 Colorectal Cancer Screening: Colonoscopy 02/09/2025 Hepatitis C Screening 02/09/2025 Medicare Annual Wellness Visit 02/09/2025 Osteoporosis Screening (Bone Density Screening) 02/09/2025 Social Influencers of Health Screening 02/09/2025 COVID-19 Vaccine ( season) 2025 06/19/2024, 06/05/2023, 05/31/2022, Additional history exists Influenza Vaccine (#1) 2025 , 06/05/2023, 05/31/2022, Additional history exists Falls Risk Assessment 03/24/2026 03/24/2025 DTaP,Tdap,and Td Vaccines (2 - Td or Tdap) 12/13/2032 12/13/2022 Hepatitis A Vaccines Aged Out 01/20/2008, 02/13/20 07 No longer eligible based on patient's age to complete this topic RSV Immunization Adult Patients Completed 09/23/2023 Zoster Vaccines Completed 09/23/2023, 06/18/2020 HIB Vaccines Aged Out No longer eligi ble based on patient's age to complete this topic HPV Vaccines Aged Out No longer eligi ble based on patient's age to complete this topic MMR Vaccines Aged Out No longer eligi ble based on patient's age to complete this topic Meningococcal ACWY Vaccine Aged Out N o longer eligible based on patient's age to complete this topic Meningococcal B Vaccine Aged Out No l onger eligible based on patient's age to complete this topic RSV Immunization Patients Under 20 months Aged Out No longer eligible based on patient's age to complete this topic Varicella Vaccines Aged Out No longer eligible based on patient's age to complete this topic Procedures Procedure Name Priority Date/Time Associated Diagnosis Comments US HEAD NECK SOFT TISSUE Routine 05/14/2025 8:36 AM EDT Thyroid nodule TETANUS TOXOID, IGG Routine 05/03/2025 1 0:53 AM EDT History of hepatitis B Adverse food reaction ALLERGEN, CRAB IGE Routine 05/03/2025 10 :53 AM EDT History of hepatitis B Adverse food reaction ALLERGEN, CLAMS IGE Routine 05/03/2025 1 0:53 AM EDT History of hepatitis B Adverse food reaction ALLERGEN, LOBSTER IGE Routine 05/03/2025 10:53 AM EDT History of hepatitis B Adverse food reaction ALLERGEN, SALMON IGE Routine 05/03/2025 10:53 AM EDT History of hepatitis B Adverse food reaction ALLERGEN, SCALLOP IGE Routine 05/03/2025 10:53 AM EDT History of hepatitis B Adverse food reaction ALLERGEN, SHRIMP Routine 05/03/2025 10:5 3 AM EDT History of hepatitis B Adverse food reaction IMMUNOGLOBULINS IGG, IGA, IGM Routine 05/03/2025 10:53 AM EDT History of hepatitis B Adverse food reaction IMMUNE DEFICIENCY PANEL, COMPREHENSIVE Routine 05/03/2025 10:53 AM EDT History of hepatitis B Adverse food reaction IMMUNOGLOBULIN G SUBCLASS 1,2,3,4 Routine 05/03/2025 10:53 AM EDT History of hepatitis B Adverse food reaction MYCOPLASMA PNEUMONIAE ANTIBODY, IGG Routine 05/03/2025 10:53 AM EDT History of hepatitis B Adverse food reaction MYCOPLASMA PNEUMONIAE ANTIBODY IGM Routine 05/03/2025 10:53 AM EDT History of hepatitis B Adverse food reaction STREPTOCOCCUS PNEUMONIAE ANTIBODIES, IGG, 23 SEROTYPES Routine 05/03/2025 10:53 AM EDT History of hepatitis B Adverse food reaction MISCELLANEOUS LAB TEST Routine 10:53 AM EDT History of hepatitis B Adverse food reaction XR CHEST 2 VIEWS Routine 04/08/2025 2:15 PM EDT Pulmonary nodule INTERFERON GAMMA INTERPRETATION Routine 03/30/2025 3:36 PM EDT Mycobacterium infection INTERFERON GAMMA ANTIGEN 2 Routine 03/30/2025 3:36 PM EDT Mycobacterium infection INTERFERON GAMMA ANTIGEN 1 Routine 03/30/2025 3:36 PM EDT Mycobacterium infection INTERFERON GAMMA MITOGEN Routine 03/30/2025 3:36 PM EDT Mycobacterium infection INTERFERON GAMMA NIL Routine 03/30/2025 3:36 PM EDT Mycobacterium infection INTERFERON GAMMA FOR TB, QUALITATIVE Routine 03/30/2025 3:36 PM EDT Mycobacterium infection XR CHEST 1 VIEW Routine 03/24/2025 5:52 AM EDT MAGNESIUM Routine 03/24/2025 5:42 AM EDT PHOSPHORUS Routine 03/24/2025 5:42 AM EDT COMPLETE BLOOD COUNT Timed 03/24/2025 5:42 AM EDT BASIC METABOLIC PANEL Routine 03/24/2025 5:42 AM EDT PEP THERAPY Routine 03/23/2025 6:01 PM EDT BASIC METABOLIC PANEL STAT 03/23/2025 2:23 PM EDT COMPLETE BLOOD COUNT STAT 03/23/2025 2:23 PM EDT XR CHEST 1 VIEW STAT 03/23/2025 2:18 PM EDT PEP THERAPY Routine 03/23/2025 1:51 PM EDT PEP THERAPY Routine 03/23/2025 1:51 PM EDT PEP THERAPY Routine 03/23/2025 1:51 PM EDT PEP THERAPY Routine 03/23/2025 1:51 PM EDT OXYGEN THERAPY, ADULT Routine 03/23/2025 1:39 PM EDT ..TISSUE GRIND, DIGESTION AND DECONVOLUTION Routine 03/23/2025 12:35 PM EDT Pulmonary nodule ..MAC SUSCEPTIBILITY BROTH Routine 03/23/2025 12:35 PM EDT Pulmonary nodule AFB IDENTIFICATION WITH REFLEX TO SUSCEPTIBILITY TESTING Routine 03/23/2025 12:35 PM EDT Pulmonary nodule ACID FAST BACILLI STAIN Routine 03/23/2025 12:35 PM EDT Pulmonary nodule CULTURE TISSUE WITH GRAM STAIN Routine 03/23/2025 12:35 PM EDT Pulmonary nodule CULTURE, AFB AND SMEAR WITH REFLEX TO IDENTIFICATION AND SUSCEPTIBILITY Routine 03/23/2025 12:35 PM EDT Pulmonary nodule CULTURE FUNGAL, OTHER Routine 03/23/2025 12:35 PM EDT Pulmonary nodule TISSUE EXAM Routine 03/23/2025 12:34 PM EDT Pulmonary nodule TH AN ENDOTRACHEAL(NO CHARGE) Routine 03/23/2025 12:00 PM EDT GA BRONCHOSCOPY RIGID/FLEXIBLE COMPUTER ASSISTED IMAGE GUIDED NAVIGATION 03/23/2025 11:13 AM EDT Pulmonary nodule Case Notes [facility] GA REMOVAL OF LUNG OTHER THAN PNEUMONECTOMY SINGLE LOBE 03/23/2025 11:13 AM EDT Pulmonary nodule Case Notes [facility] GA THORACOSCOPY SURGICAL WITH REMOVAL OF A SINGLE LUNG SEGMENT 03/23/2025 11:13 AM EDT Pulmonary nodule Case Notes [facility] GA BRONCHOSCOPY RIGID/FLEXIBLE INCL FLUORO W/THERAPY ASPIRATION INITIAL 03/23/2025 11:13 AM EDT Pulmonary nodule Case Notes [facility] GA BRONCHOSCOPY INCL FLUROSCOPIC GUIDANCE W PLCMNT FIDUCIAL MARKER SGL/MULT 03/23/2025 11:13 AM EDT Pulmonary nodule Case Notes [facility] GA THORACOSCOPY W DX WEDGE RESECTION F/B ANATOMIC LUNG RESECTION 03/23/2025 11:13 AM EDT Pulmonary nodule Case Notes [facility] PREPARE RBC Routine 03/23/2025 9:52 AM EDT PROCEDURAL ECG Routine 03/18/2025 10:41 AM EDT Pulmonary nodule CBC WITH AUTO DIFFERENTIAL Routine 03/18/2025 10:31 AM EDT Pulmonary nodule BASIC METABOLIC PANEL Routine 03/18/2025 10:31 AM EDT Pulmonary nodule CBC AND DIFFERENTIAL Routine 03/18/2025 10:31 AM EDT Pulmonary nodule PROTHROMBIN TIME WITH INR Routine 03/18/2025 10:31 AM EDT Pulmonary nodule Neoplasm ACTIVATED PARTIAL THROMBOPLASTIN TIME Routine 03/18/2025 10:31 AM EDT Pulmonary nodule Neoplasm TYPE AND SCREEN Routine 03/18/2025 10:31 AM EDT Pulmonary nodule PULMONARY FUNCTION TESTING Routine 03/16/2025 9:06 AM EDT Pulmonary nodule from Last 3 Months Results * US Head Neck Soft Tissue (05/14/2025 8:36 AM EDT) Anatomical Region Laterality Modality Head and Neck Ultrasound 05/24/2025 4:54 PM EDT Impressions 05/24/2025 5:12 PM EDT Subcentimeter thyroid nodules with 13 mm colloid cyst. -------- FINAL REPORT -------- Dictated By: Sunny Gomez Dictated Date: 05/24/2025 16:54 ET Assigned Physician: Sunny Gomez Reviewed and Electronically Signed By: Sunny Gomez Signed Date: 05/24/2025 17:12 ET Workstation ID: [id number] Transcribed By: Self Edit Transcribed Date: 05/24/2025 16:54 ET Narrative 05/24/2025 5:12 PM EDT INDICATION: THYROID NODULE FINDINGS: Ultrasound of the thyroid gland performed. No prior thyroid studies available for comparison. Right lobe measures: 4 cm x 1.7 cm x 1.6 cm Left lobe measures: 4 cm x 1.4 cm x 1.3 cm Isthmus measures: 2 mm in width. Lobulated hypoechoic mildly heterogeneous well-circumscribed nodule within the lower right thyroid lobe measures 7 mm x 6 mm x 6 mm. Solitary punctate echogenic focus. Cystic component suspected with small solid component. TR 4 On the left side laterally oval well-circumscribed 13 mm x 6 mm x 6 mm very hypoechoic nodule with increased through transmission and solitary peripheral echogenic focus has the appearance of a colloid cyst. Well-circumscribed small 7 mm x 4 mm x 4 mm nodule noted more medially within the mid gland. This is solid well-circumscribed without punctate echogenic foci. TR 3 Procedure Note Sunny Gomez MD - 05/24/2025 INDICATION: THYROID NODULE FINDINGS: Ultrasound of the thyroid gland performed. No prior thyroidstudies available for comparison. Right lobe measures: 4 cm x 1.7 cm x 1.6 cm Left lobe measures: 4 cm x 1.4 cm x 1.3 cm Isthmus measures: 2 mm in width. Lobulated hypoechoic mildly heterogeneous well-circumscribed nodule withinthe lower right thyroid lobe measures 7 mm x 6 mm x 6 mm. Solitarypunctate echogenic focus. Cystic component suspected with small solidcomponent. TR 4 On the left side laterally oval well-circumscribed 13 mm x 6 mm x 6 mmvery hypoechoic nodule with increased through transmission and solitaryperipheral echogenic focus has the appearance of a colloid cyst. Well-circumscribed small 7 mm x 4 mm x 4 mm nodule noted more mediallywithin the mid gland. This is solid well-circumscribed without punctateechogenic foci. TR 3 IMPRESSION: Subcentimeter thyroid nodules with 13 mm colloid cyst. -------- FINAL REPORT -------- Dictated By: Sunny Gomez Dictated Date: 05/24/2025 16:54 ET Assigned Physician: Sunny Gomez Reviewed and Electronically Signed By: Sunny Gomez Signed Date: 05/24/2025 17:12 ET Workstation ID: [id number] Transcribed By: Self Edit Transcribed Date: 05/24/2025 16:54 ET Keila Sousa DO [facility] PROCEDURES Final Result * Streptococcus pneumoniae antibodies, IgG, 23 serotypes (05/03/2025 10:53 AM EDT) Serotype 1 (1) 1.4 >=1.0 mcg/mL 05/07/2025 11:27 AM EDT [facility] Serotype 2 (2) 0.8 >=1.0 mcg/mL 05/07/2025 11:27 AM EDT [facility] Serotype 3 (3) 0.1 >=1.0 mcg/mL 05/07/2025 11:27 AM EDT [facility] Serotype 4 (4) 0.2 >=1.0 mcg/mL 05/07/2025 11:27 AM EDT [facility] Serotype 5 (5) 0.4 >=1.0 mcg/mL 05/07/2025 11:27 AM EDT [facility] Serotype 8 (8) 1.0 >=1.0 mcg/mL 05/07/2025 11:27 AM EDT [facility] Serotype 9 (9N) 0.4 >=1.0 mcg/mL 05/07/2025 11:27 AM EDT [facility] Serotype 12F (12) 0.5 >=1.0 mcg/mL 05/07/2025 11:27 AM EDT [facility] Serotype 14 (14) 0.8 >=1.0 mcg/mL 05/07/2025 11:27 AM EDT [facility] Serotype 17 (17F) 0.9 >=1.0 mcg/mL 05/07/2025 11:27 AM EDT [facility] Serotype 19 (19F) 1.7 >=1.0 mcg/mL 05/07/2025 11:27 AM EDT [facility] Serotype 20 (20) 1.7 >=1.0 mcg/mL 05/07/2025 11:27 AM EDT [facility] Serotype 22F (22) 1.1 >=1.0 mcg/mL 05/07/2025 11:27 AM EDT [facility] Serotype 23 (23F) 0.5 >=1.0 mcg/mL 05/07/2025 11:27 AM EDT [facility] Serotype 6B 0.3 >=1.0 mcg/mL 05/07/2025 11:27 AM EDT [facility] Serotype 10A 1.0 >=1.0 mcg/mL 05/07/2025 11:27 AM EDT [facility] Serotype 11A 0.6 >=1.0 mcg/mL 05/07/2025 11:27 AM EDT [facility] Serotype 7F 2.8 >=1.0 mcg/mL 05/07/2025 11:27 AM EDT [facility] Serotype 15B 2.4 >=1.0 mcg/mL 05/07/2025 11:27 AM EDT [facility] Serotype 18C 1.5 >=1.0 mcg/mL 05/07/2025 11:27 AM EDT [facility] Serotype 19A 2.4 >=1.0 mcg/mL 05/07/2025 11:27 AM EDT [facility] Serotype 9V 0.1 >=1.0 mcg/mL 05/07/2025 11:27 AM EDT [facility] Serotype 33F 2.0 >=1.0 mcg/mL 05/07/2025 11:27 AM EDT [facility] Interpretation SEE BELOW 05/07/2025 11:27 AM EDT [facility] Comment: Evaluation of the immune response following pneumococcal vaccination can be assessed by measuring serotype-specific Streptococcus pneumonia IgG antibodies. Either of the following conditions is consistent with a normal response to Streptococcus pneumonia vaccination: 1. When comparing pre and post-vaccination samples, antibody concentrations increased by at least 2-fold for either >50% of serotypes in children <6 years of age or >70% of serotypes for individuals >6 years of age. 2. In either a pre- or post-vaccination sample, antibody concentrations >=1.0 mcg/mL for either >50% of serotypes for children <6 years of age or >70% of serotypes for individuals >6 years of age. Results >=1.0 mcg/mL or those showing a >=2-fold change are consistent with an immune response, but are not necessarily sufficient to provide protection against infection. ADDITIONAL INFORMATION This test was developed and its performance characteristics determined by [facility] in a manner consistent with CLIA requirements. This test has not been cleared or approved by the U.S. Food and Drug Administration. Test Performed by: [facility] [address] [place] [address] Marine Engineering Consultant: Joel Lema Ph.D.; CLIA# [id number] Blood Venous blood specimen / Unknown Venipuncture / Unknown 05/03/2025 10:53 AM EDT 05/03/2025 10:53 AM EDT us [facility] BLOOD ORDERABLES Final Resul t [facility] [address] [place] [address] * (ABNORMAL) Immune deficiency panel, comprehensive (05/03/2025 10:53 AM EDT) CD3 Percent 71 55 - 86 % 05/06/2025 1:04 PM EDT [facility] CD3 Absolute Count 743 704 - 2138 cell/ul 05/06/2025 1:04 PM EDT [facility] CD8 Percent 12 9 - 37 % 05/06/2025 1:04 PM EDT [facility] CD8 Absolute Count 121(L) 190 - 832 cell/ul 05/06/2025 1:04 PM EDT [facility] CD4 Percent 60 35 - 66 % 05/06/2025 1:04 PM EDT [facility] CD4 Absolute Count 628 443 - 1471 cell/ul 05/06/2025 1:04 PM EDT [facility] CD56+CD16 Percent 12 3 - 24 % 05/06/2025 1:04 PM EDT [facility] CD56+CD16 Absolute Count 130 60 - 500 cell/ul 05/06/2025 1:04 PM EDT [facility] CD19 Percent 16 4 - 25 % 05/06/2025 1:04 PM EDT [facility] CD19 Absolute 169 100 - 524 cell/ul 05/06/2025 1:04 PM EDT [facility] T4/T8 Ratio (CD4:CD8) 5.0(H) 1.0 - 3.7 05/06/2025 1:04 PM EDT [facility] Comment: Test performed at [facility], [address] , [place] [address] Blood Venous blood specimen / Unknown Venipuncture / Unknown 05/03/2025 10:53 AM EDT 05/03/2025 10:53 AM EDT [facility] BLOOD ORDERABLES Final Resul t Performing Organization Address [facility]/ZIP Co de Phone Number [facility] [address] [place] [address] * Anti-Tetanus Toxoid Level - Miscellaneous Test (05/03/2025 10:53 AM EDT) [facility] Miscellaneous Test COMMENT 2024 11:05 PM EDT [facility] Blood Venipuncture / Unknown 05/03/2025 10:53 AM EDT 05/03/2025 10:53 AM EDT Narrative [facility] - 05/05/2025 11:05 PM EDT Performed At: [address] [id number] Benito Bueno MD Ph:[phone] Performed At: [address] [place] [place] [address], [address] [place], [place] [id number] Raj Martinez MD Ph:[phone] [facility] BLOOD ORDERABLES Final [facility]ul t [facility] * (ABNORMAL) Mycoplasma pneumoniae antibody IgM (05/03/2025 10:53 AM EDT) Pathologist [facility] Mycoplasma Antibody IgM 2.10(H) <=0.90 INDEX 05/07/2025 6:08 AM EDT [facility] Comment: Positive: IgM antibody detected which may indicate recent primary or reactivated exposure. Test performed at [facility], [address] , [place] [address] Jennifer Koroma MD, PhD - Field Support Technician Blood Venous blood specimen / Unknown Venipuncture / Unknown 05/03/2025 10:53 AM EDT 05/03/2025 10:53 AM EDT [facility] [employer] [facility] BLOOD ORDERABLES Final Resul t Performing Organization Address [facility] de Phone Number [facility] [address] [place] [address] * Tetanus toxoid, IgG (05/03/2025 10:53 AM EDT) Pathologist [facility] Tetanus Antitoxoid IgG Ab 3.36 <0.10 IU/mL 05/05/2025 11:05 PM EDT [facility] Comment: Interpretation: Non-Protective <0.10 Protective >=0.10 Results for this test are for research purposes only by the assay's naval inspector. The performance characteristics of this product have not been established. Results should not be used as a diagnostic procedure without confirmation of the diagnosis by another medically established diagnostic product or procedure. Blood Venous blood specimen / Unknown Venipuncture / Unknown 05/03/2025 10:53 AM EDT 05/03/2025 10:53 AM EDT [facility] [place] [facility] BLOOD ORDERABLES Final Resul t Performing Organization Address [facility] de Phone Number [facility] * (ABNORMAL) Mycoplasma pneumoniae antibody, IgG (05/03/2025 10:53 AM EDT) Pathologist [facility] Mycoplasma Antibody IgG 1.82(H) <=0.90 INDEX 05/07/2025 5:[address] [facility] Comment: Positive: IgG antibody detected which may indicate current or previous exposure. Test performed at [facility], [address] , [place] [address] Jennifer Koroma MD, PhD - Field Support Technician Blood Venous blood specimen / Unknown Venipuncture / Unknown 05/03/2025 10:53 AM EDT 05/03/2025 10:53 AM EDT Eliezer Erelli PA LAB BLOOD ORDERABLES Final Resul t [facility] [address] [place] [address] * Lobster IgE (05/03/2025 10:53 AM EDT) Lobster, IgE <0.10 <0.10 kU/L 05/07/2025 4:33 PM EDT [facility] Lobster Class CLASS 0 05/07/2025 4:33 PM EDT [facility] Comment: Test performed at [facility], [address] , [place] [address] Jennifer Koroma MD, PhD - Field Support Technician Blood Venous blood specimen / Unknown Venipuncture / Unknown 05/03/2025 10:53 AM EDT 05/03/2025 10:53 AM EDT Eliezer Erelli PA LAB BLOOD ORDERABLES Final Resul t Performing Organization Address City/[facility]/ZIP Co de Phone Number [facility] [address] [place] [address] * Clams IgE (05/03/2025 10:53 AM EDT) Clam, IgE <0.10 <0.10 kU/L 05/07/2025 4:33 PM EDT [facility] Clam Class CLASS 0 05/07/2025 4:33 PM EDT [facility] Comment: Test performed at [facility], [address], [place] [address] Jennifer Koroma MD, PhD - Field Support Technician Blood Venous blood specimen / Unknown Venipuncture / Unknown 05/03/2025 10:53 AM EDT 05/03/2025 10:53 AM EDT Eliezer Erelli PA LAB BLOOD ORDERABLES Final Resul t [facility] [address] [place] [address] * Shrimp IgE (05/03/2025 10:53 AM EDT) Shrimp, IgE <0.10 <0.10 kU/L 05/07/2025 4:33 PM EDT [facility] Shrimp Class CLASS 0 05/07/2025 4:33 PM EDT [facility] Comment: Test performed at [facility], [address], [place] [address] Jennifer Koroma MD, PhD - Field Support Technician Blood Venous blood specimen / Unknown Venipuncture / Unknown 05/03/2025 10:53 AM EDT 05/03/2025 10:53 AM EDT Eliezer Erelli PA LAB BLOOD ORDERABLES Final Resul t Performing Organization Address [facility] Co de Phone Number [facility] [address] [place] [address] * Scallop IgE (05/03/2025 10:53 AM EDT) Scallop, IgE <0.10 <0.10 kU/L 05/07/2025 4:33 PM EDT [facility] Scallop Class CLASS 0 05/07/2025 4:33 PM EDT [facility] Comment: Test performed at [facility], [address], [place] [address] Jennifer Koroma MD, PhD - Field Support Technician Blood Venous blood specimen / Unknown Venipuncture / Unknown 05/03/2025 10:53 AM EDT 05/03/2025 10:53 AM EDT Eliezer Erelli PA LAB BLOOD ORDERABLES Final Resul t [facility] [address] [place] [address] * Quinter IgE (05/03/2025 10:53 AM EDT) Quinter, IgE <0.10 <0.10 kU/L 05/07/2025 4:33 PM EDT [facility] Quinter Class CLASS 0 05/07/2025 4:33 PM EDT [facility] Comment: Test performed at [facility], [address] [place] [address] Jennifer Koroma MD, PhD - Field Support Technician Blood Venous blood specimen / Unknown Venipuncture / Unknown 05/03/2025 10:53 AM EDT 05/03/2025 10:53 AM EDT Eliezer Erelli PA LAB BLOOD ORDERABLES Final Resul t Performing Organization Address [facility] de Phone Number [facility] [address] [place] [address] * Crab IgE (05/03/2025 10:53 AM EDT) Pathologist [facility] Crab, IgE <0.10 <0.10 kU/L 05/07/2025 4:33 PM EDT [facility] Crab Class CLASS 0 05/07/2025 4:33 PM EDT [facility] Comment: Test performed at [facility], [address] [place] [address] Jennifer Koroma MD, PhD - Field Support Technician Blood Venous blood specimen / Unknown Venipuncture / Unknown 05/03/2025 10:53 AM EDT 05/03/2025 10:53 AM EDT Eliezer Erelli PA LAB BLOOD ORDERABLES Final Resul t Performing Organization Address [facility]/ZIP Co de Phone Number [facility] [address] [place], [place] [id number] * (ABNORMAL) Immunoglobulin G subclass 1,2,3,4 (05/03/2025 10:53 AM EDT) Immunoglobulin G (IgG) Subclass 1 462 382 - 929 mg/dL 05/06/2025 3:[address] [facility] Immunoglobulin G (IgG) Subclass 2 181(L) 242 - 700 mg/dL 05/06/2025 3:[address] [facility] Immunoglobulin G (IgG) Subclass 3 4(L) 22 - 176 mg/dL 05/06/2025 3:[address] [facility] Immunoglobulin G (IgG) Subclass 4 17 4 - 86 mg/dL 05/06/2025 3:[address] [facility] Comment: Test performed at [facility], [address] , [place] [address] Jennifer Koroma MD, PhD - Field Support Technician Blood Venous blood specimen / Unknown Venipuncture / Unknown 05/03/2025 10:53 AM EDT 05/03/2025 10:53 AM EDT Eliezer MURPHY LAB BLOOD ORDERABLES Final Resul t [facility] [address] [place] [address] * Immunoglobulins IgG, IgA, IgM (05/03/2025 10:53 AM EDT) Total IgG 761 549 - 1,584 mg/dL LAB CHEMISTRY METHOD 05/03/2025 3:21 PM EDT [facility] IgA 285 61 - 348 mg/dL LAB CHEMISTRY METHOD 05/03/2025 3:21 PM EDT [facility] IgM 149 23 - 259 mg/dL LAB CHEMISTRY METHOD 05/03/2025 3:21 PM EDT [facility] Blood Venous blood specimen / Unknown Venipuncture / Unknown 05/03/2025 10:53 AM EDT 05/03/2025 10:53 AM EDT us Eliezer MURPHY LAB BLOOD ORDERABLES Final Resul t [facility] [address] [place] [address], [place] [phone] * XR Chest 2 Views (04/08/2025 2:15 PM EDT) Anatomical Region Laterality Modality Body Radiographic Freda ging 04/08/2025 2:45 PM EDT Impressions 04/08/2025 2:46 PM EDT FINDINGS/IMPRESSION: Evidence of a right upper lobe wedge resection. No consolidation or effusion. No pneumothorax. No acute osseous abnormality. -------- FINAL REPORT -------- Dictated By: Sheeba Jaime Dictated Date: 04/08/2025 14:45 ET Assigned Physician: Sheeba Jaime Reviewed and Electronically Signed By: Sheeba Jaime Signed Date: 04/08/2025 14:46 ET Workstation ID: [id number] Transcribed By: Self Edit Transcribed Date: 04/08/2025 14:45 ET Narrative 04/08/2025 2:46 PM EDT XR CHEST 2 VIEWS INDICATION: s/p RUL wedge. TECHNIQUE: XR CHEST 2 VIEWS COMPARISON: No priors available. Procedure Note Sheeba Jaime MD - 04/08/2025 XR CHEST 2 VIEWS INDICATION: s/p RUL wedge. TECHNIQUE: XR CHEST 2 VIEWS COMPARISON: No priors available. IMPRESSION: FINDINGS/IMPRESSION: Evidence of a right upper lobe wedge resection. Noconsolidation or effusion. No pneumothorax. No acute osseousabnormality. -------- FINAL REPORT -------- Dictated By: Sheeba Jaime Dictated Date: 04/08/2025 14:45 ET Assigned Physician: Sheeba Jaime Reviewed and Electronically Signed By: Sheeba Jaime Signed Date: 04/08/2025 14:46 ET Workstation ID: [id number] Transcribed By: Self Edit Transcribed Date: 04/08/2025 14:45 ET Radha MURPHY IMG XR PROCEDURES Final Resul t * Interferon gamma interpretation (03/30/2025 3:36 PM EDT) [facility] Signature Quantiferon Plus Interpretation Negative Negative LAB CHEMISTRY METHOD 04/01/2025 10:53 AM EDT [facility] Blood Venous blood specimen / Unknown Venipuncture / Unknown 03/30/2025 3:36 PM EDT 03/30/2025 3:36 PM EDT us Emma Leija MANAGING BROKER LAB BLOOD ORDERABLES Final Result [facility] [address] [place] [address], [place] [phone] * Interferon gamma antigen 2 (03/30/2025 3:36 PM EDT) Blood Venous blood specimen / Unknown Venipuncture / Unknown 03/30/2025 3:36 PM EDT 03/30/2025 3:36 PM EDT us Emma Leija MANAGING BROKER LAB BLOOD ORDERABLES Final Result [facility] [address] [place] [address], [place] [phone] * Interferon gamma antigen 1 (03/30/2025 3:36 PM EDT) Blood Venous blood specimen / Unknown Venipuncture / Unknown 03/30/2025 3:36 PM EDT 03/30/2025 3:36 PM EDT us Emma Leija MANAGING BROKER LAB BLOOD ORDERABLES Final Result [facility] [address] [place] [address], [place] [phone] * Interferon gamma mitogen (03/30/2025 3:36 PM EDT) Blood Venous blood specimen / Unknown Venipuncture / Unknown 03/30/2025 3:36 PM EDT 03/30/2025 3:36 PM EDT Emma Heladio MANAGING BROKER LAB BLOOD ORDERABLES Final Result Performing Organization Address City/[facility]/ZIP Co de Phone Number [facility] [address] [place] [address], * Interferon gamma NIL (03/30/2025 3:36 PM EDT) Blood Venous blood specimen / Unknown Venipuncture / Unknown 03/30/2025 3:36 PM EDT 03/30/2025 3:36 PM EDT Emma Leija MANAGING BROKER LAB BLOOD ORDERABLES Final Result Performing Organization Address [facility] de Phone Number [facility] [address] [place] [address], * XR Chest 1 View (03/24/2025 5:52 AM EDT) Only the most recent of2 resultswithin the time period is included. Anatomical Region Laterality Modality Body Radiographic Freda ging 03/24/2025 8:22 AM EDT Impressions 03/24/2025 8:23 AM EDT Repositioned right chest tube. Otherwise unchanged exam. -------- FINAL REPORT -------- Dictated By: Constantine Mora Dictated Date: 03/24/2025 08:22 ET Assigned Physician: Constantine Mora Reviewed and Electronically Signed By: Constantine Mora Signed Date: 03/24/2025 08:23 ET Workstation ID: [id number] Transcribed By: Self Edit Transcribed Date: 03/24/2025 08:22 ET Narrative 03/24/2025 8:23 AM EDT PROCEDURE: AP chest radiograph. HISTORY: s/p RUL wedge. COMPARISON: 03/23/2025. FINDINGS: Mild cardiomegaly. Right chest tube has been repositioned with the tip now projecting over the lower right hemithorax and the side-port projecting in the soft tissues of the chest wall. Staple line in the mid right lung with a small amount of adjacent opacity, likely post operative volume loss and hemorrhage. Persistent trace right apical pneumothorax. Procedure Note Constantine Mora MD - 03/24/2025 PROCEDURE: AP chest radiograph. HISTORY: s/p RUL wedge. COMPARISON: 03/23/2025. FINDINGS: Mild cardiomegaly. Right chest tube has been repositioned with the tipnow projecting over the lower right hemithorax and the side-portprojecting in the soft tissues of the chest wall. Staple line in the midright lung with a small amount of adjacent opacity, likely post operativevolume loss and hemorrhage. Persistent trace right apical pneumothorax. IMPRESSION: Repositioned right chest tube. Otherwise unchanged exam. -------- FINAL REPORT -------- Dictated By: Constantine Mora Dictated Date: 03/24/2025 08:22 ET Assigned Physician: Constantine Mora Reviewed and Electronically Signed By: Constantine Mora Signed Date: 03/24/2025 08:23 ET Workstation ID: [id number] Transcribed By: Self Edit Transcribed Date: 03/24/2025 08:22 ET us Radha MURPHY IMG XR PROCEDURES Final Resul t * (ABNORMAL) CBC - Every 3 Days (03/24/2025 5:42 AM EDT) Only the most recent of2 resultswithin the time period is included. WBC 13.7(H) 4.8 - 10.8 K/mcL LAB HEMETOLOGY METHOD 03/24/2025 6:56 AM EDT [facility] RBC 4.30 3.80 - 4.80 M/mcL LAB HEMETOLOGY METHOD 03/24/2025 6:56 AM EDT [facility] Hemoglobin 13.4 11.5 - 16.0 g/dL LAB HEMETOLOGY METHOD 03/24/2025 6:56 AM EDT [facility] Hematocrit 40.4 35.0 - 47.0 % LAB HEMETOLOGY METHOD 03/24/2025 6:56 AM EDT [facility] MCV 94.8 79.0 - 98.0 FL LAB HEMETOLOGY METHOD 03/24/2025 6:56 AM EDT [facility] MCH 31.5 27.0 - 32.0 pcg LAB HEMETOLOGY METHOD 03/24/2025 6:56 AM EDT [facility] MCHC 33.2 32.0 - 37.0 g/dL LAB HEMETOLOGY METHOD 03/24/2025 6:56 AM EDT [facility] RDW 13.2 11.0 - 15.0 % LAB HEMETOLOGY METHOD 03/24/2025 6:56 AM EDT [facility] Platelets 255 130 - 400 K/mcL LAB HEMETOLOGY METHOD 03/24/2025 6:56 AM EDT [facility] MPV 10.1 7.0 - 11.0 FL LAB HEMETOLOGY METHOD 03/24/2025 6:56 AM EDT [facility] NRBC 0.0 <1.0 % LAB HEMETOLOGY METHOD 03/24/2025 6:56 AM EDT [facility] NRBC Absolute 0.00 <0.10 K/mcL LAB HEMETOLOGY METHOD 03/24/2025 6:56 AM EDT [facility] Blood Venous blood specimen / Unknown Venipuncture / Unknown 03/24/2025 5:42 AM EDT 03/24/2025 6:25 AM EDT us Radha MURPHY LAB BLOOD ORDERABLES Final Re sult [facility] [address] [place] [address], * Phosphorus (03/24/2025 5:42 AM EDT) Phosphorus 3.9 2.5 - 4.5 mg/dL LAB CHEMISTRY METHOD 03/24/2025 7:25 AM EDT [facility] Blood Venous blood specimen / Unknown Venipuncture / Unknown 03/24/2025 5:42 AM EDT 03/24/2025 6:26 AM EDT Radha MURPHY LAB BLOOD ORDERABLES Final Re sult Performing Organization Address City/[facility]/ZIP Co de Phone Number [facility] [address] [place] [address], [place] [phone] * Magnesium (03/24/2025 5:42 AM EDT) [facility] Magnesium 2.0 1.9 - 2.6 mg/dL LAB CHEMISTRY METHOD 03/24/2025 7:25 AM EDT [facility] Blood Venous blood specimen / Unknown Venipuncture / Unknown 03/24/2025 5:42 AM EDT 03/24/2025 6:26 AM EDT Radha MURPHY LAB BLOOD ORDERABLES Final Re sult Performing Organization Address [facility]/ZIP Co de Phone Number [facility] [address] [place] [address], [place] [phone] * (ABNORMAL) Basic metabolic panel (03/24/2025 5:42 AM EDT) Only the most recent of3 resultswithin the time period is included. [facility] Sodium 135 133 - 145 mmol/L LAB CHEMISTRY METHOD 03/24/2025 7:25 AM EDT [facility] Potassium 4.2 3.5 - 5.5 mmol/L LAB CHEMISTRY METHOD 03/24/2025 7:25 AM EDT [facility] Chloride 102 96 - 110 mmol/L LAB CHEMISTRY METHOD 03/24/2025 7:25 AM EDT [facility] CO2 26 21 - 32 mmol/L LAB CHEMISTRY METHOD 03/24/2025 7:25 AM [facility] Anion Gap 7 3 - 11 LAB CHEMISTRY METHOD 03/24/2025 7:25 AM [facility] Glucose 130(H) 70 - 100 mg/dL LAB CHEMISTRY METHOD 03/24/2025 7:25 AM [facility] BUN 12 5 - 25 mg/dL LAB CHEMISTRY METHOD 03/24/2025 7:25 AM [facility] Creatinine 0.55 0.50 - 1.10 mg/dL LAB CHEMISTRY METHOD 03/24/2025 7:25 AM [facility] eGFR 102 >=60 mL/min/1. 73m2 LAB CHEMISTRY METHOD 03/24/2025 7:25 AM [facility] Comment:Calculation based on the Chronic Kidney Disease Epidemiology Collaboration (CKD-EPI) equation refit without adjustment for race. BUN/Creatinine Ratio 21.8 LAB CHEMISTRY METHOD 03/24/2025 7:25 AM [facility] Calcium 9.2 8.5 - 10.5 mg/dL LAB CHEMISTRY METHOD 03/24/2025 7:25 AM [facility] Blood Venous blood specimen / Unknown Venipuncture / Unknown 03/24/2025 5:42 AM EDT 03/24/2025 6:26 AM EDT Radha MURPHY LAB BLOOD ORDERABLES Final Re sult [facility] [address] [place] [address], [place] [phone] * Culture tissue with gram stain (03/23/2025 12:35 PM EDT) Culture, Tissue No growth aerobically and anaerobically at 5 days. 03/28/2025 8:01 AM T [facility] Gram Stain Result No polymorphonuclear leukocytes, No epithelial cells, and No organisms noted 03/28/2025 8:01 AM EDT [facility] ([facility] Tissue Structure of upper lobe of right lung / Unknown 03/23/2025 12:35 PM EDT 03/23/2025 12:46 PM EDT Mary Daniels MD LAB MICROBIOLOGY - GENERAL ORDER BRAYDEN Final Result Performing Organization Address City/[facility]/ZIP Co de Phone Number [facility] [address] [place] [address], [place] [phone] * (ABNORMAL) AFB identification with reflex to susceptibility (03/23/2025 12:35 PM EDT) M tuberculosis complex Negative 04/28/2025 2:05 PM EDT [facility] M avium complex Positive(A) 04/28/20 25 2:05 PM EDT [facility] Reflex ID by MALDI Not Indicated 2:05 PM EDT [facility] Other 04/28/2025 2:05 PM EDT [facility] Comment:No additional identi fication testing is necessary. Susceptibility Testing See reflex. 04/28/2025 2:05 PM EDT [facility] Tissue Structure of upper lobe of right lung / Unknown 03/23/2025 12:35 PM EDT 03/23/2025 12:46 PM EDT Narrative [facility] - 04/28/2025 2:05 PM EDT Performed at: - [facility] [id number] Marine Engineering Consultant: Priti Ellis MD, Phone: [phone] us Mary Daniels MD LAB MICROBIOLOGY - GENERAL ORDER BRAYDEN Final Result [facility] * Tissue grind, digestion and deconvolution (03/23/2025 12:35 PM EDT) Tissue Grind/Digestio n/Decon Performed 04/28/2025 2:05 PM EDT [facility] Tissue Structure of upper lobe of right lung / Unknown 03/23/2025 12:35 PM EDT 03/23/2025 12:46 PM EDT Narrative [facility] - 04/28/2025 2:05 PM EDT Performed at: 01 - [facility] [id number] Marine Engineering Consultant: Priti Ellis MD, Phone: [phone] us Mary Daniels MD LAB PATHOLOGY ORDERABLES Edited Result - Final [facility] * (ABNORMAL) Mac susceptibility broth (03/23/2025 12:35 PM EDT) Organism ID Mycobacterium avium complex(A) 04/28/2025 2:05 PM EDT [facility] Amikacin 8.0 ug/mL Susceptible 04/28/2025 2:05 PM EDT [facility] Comment: For Mycobacterium avium-intracellulare complex, the interpretive criteria for amikacin apply to IV treatment. If using amikacin (liposomal, inhaled), the DIONE interpretive breakpoints are <= 64ug/mL Susceptible, >= 128 ug/mL Resistant (CLSI M24S). Ciprofloxacin 0.5 ug/mL 04/28/2025 2:05 PM EDT [facility] Clarithromycin 0.5 ug/mL Susceptible 04/28/2025 2:05 PM EDT [facility] Clofazimine 04/28/2025 2:05 PM EDT [facility] Comment:Test not performed Doxycycline 4.0 ug/mL 04/28/2025 2:05 PM EDT [facility] Linezolid 8.0 ug/mL Susceptible 04/28/2025 2:05 PM EDT [facility] Minocycline 8.0 ug/mL 04/28/2025 2:05 PM EDT [facility] Moxifloxacin 0.5 ug/mL Susceptible 04/28/2025 2:05 PM EDT [facility] Rifabutin 0.12 ug/mL or less 04/28/2025 2:05 PM EDT [facility] Rifampin 2.0 ug/mL 04/28/2025 2:05 PM EDT [facility] Streptomycin 16.0 ug/mL 04/28/2025 2:05 PM EDT [facility] Trimethoprim/ Sulfamethoxazole 0.5/9.5 ug/mL 04/28/2025 2:05 PM EDT [facility] Tissue Structure of upper lobe of right lung / Unknown 03/23/2025 12:35 PM EDT 03/23/2025 12:46 PM EDT Narrative [facility] - 04/28/2025 2:05 PM EDT Performed at: 02 - [address] [id number] Marine Engineering Consultant: Ximena Oliver MD, Phone: [phone] Mary Daniels MD LAB MICROBIOLOGY - GENERAL ORDER BRAYDEN Final Result Performing Organization Address City/[facility]/ZIP Co de Phone Number [facility] * (ABNORMAL) Culture, afb and smear with reflex to identification and susceptibility (03/23/2025 12:35 PM EDT) AFB Specimen Processing Tissue Grinding and Digestion/De contaminatio n 04/28/2025 2:05 PM EDT [facility] Acid Fast Smear Negative 04/28/2025 2:05 PM EDT [facility] Acid Fast Culture Positive(A) 04/28/2025 2:05 PM EDT [facility] Comment: Acid-fast bacilli have been detected in culture at 2 weeks. Further identification to follow. Tissue Structure of upper lobe of right lung / Unknown 03/23/2025 12:35 PM EDT 03/23/2025 12:46 PM EDT Narrative [facility] - 04/28/2025 2:05 PM EDT Performed at: 01 - [address] [id number] Marine Engineering Consultant: Priti Ellis MD, Phone: [phone] Mary Daniels MD LAB MICROBIOLOGY - GENERAL ORDER BRAYDEN Final Result [facility] * Acid fast bacilli stain (03/23/2025 12:35 PM EDT) AFB Stain Result No Acid fast bacilli seen on direct smear (Fuchsin method, 1000x) No Acid Fast Bacilli seen on direct smear 03/23/2025 10:07 PM EDT [facility] Tissue Structure of upper lobe of right lung / Unknown 03/23/2025 12:35 PM EDT 03/23/2025 12:46 PM EDT us Mary Daniels MD LAB MICROBIOLOGY - GENERAL ORDER BRAYDEN Final Result Performing Organization Address City/[facility]/ZIP Co de Phone Number [facility] [address] [place] [address], [place] [phone] * Culture fungal, other (03/23/2025 12:35 PM EDT) Culture, Fungus Negative for Fungus after 4 Weeks 04/22/2025 10:33 AM EDT [facility] Tissue Structure of upper lobe of right lung / Unknown 03/23/2025 12:35 PM EDT 03/23/2025 12:46 PM EDT us Mary Daniels MD LAB MICROBIOLOGY - GENERAL ORDER BRAYDEN Final Result Performing Organization Address [facility] Co de Phone Number [facility] [address] [place] [address], [place] [phone] * Tissue exam (03/23/2025 12:34 PM EDT) Addendum GMS stain negative (Controls appropriate for GMS and AFB) 8:40 AM EDT [facility] Addendum electronically signed by Bismark Noonan MD on 04/02/2025 at 8:39 AM Final Diagnosis A. 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 Lung, Right Upper Lobe, Wedge: Labeled [...] approximately 1.1 cm from the staple line. Sr. Pricing Analyst sections of the nodule are submitted for frozen section. The parenchyma surrounding the nodule is heavily blue-stained. The remaining parenchyma is cho-red and spongiform. No other palpable or grossly identifiable nodules are noted. Lymph nodes are absent. Sr. Pricing Analyst sections are submitted in six cassettes including the entire nodule. 1-frozen section residue, sections of nodule, two pieces 2-3 remaining nodule including pleural surface and stapled parenchymal line, taken perpendicularly, one piece each 4-uninvolved parenchyma directly adjacent to [...] in formalin is a rubbery, brennan-black, focally encapsulated, 0.6 cm in greatest diameter anthracotic portion of [...] of gina tissue with minimal attached adipose tissue which is bisected, wrapped in paper and submitted in entirety in one cassette, two pieces. F. Lymph Node, Level 10 #2, Right: Labeled level 10 lymph node . Received in formalin, with Telfa, is a rubbery, brennan-black, anthracotic, 0.9 cm in greatest diameter thin portion of gina tissue with attached adipose tissue, which is wrapped in paper and submitted in toto in one cassette, one piece. TS 5 8:40 AM EDT [facility] Intraoperative Consultation A. Lung, Right Upper Lobe, Wedge: Frozen section diagnosis (one tissue block frozen) Lung, right upper lobe, wedge biopsy: Necrotizing granulomatous inflammation. No carcinoma identified in two account manager sales representative cross sections of nodule. The result was discussed with Dr. Mary Daniels on 03/23/2025. 5 8:40 AM EDT [facility] Disclaimer NOTE: The immunohistochemical tests and in situ hybridization tests were developed and their performance characteristics were determined by [facility]. They have not been cleared or approved by the U.S. Food and Drug Administration. The FDA has determined that such clearance or approval is not necessary. These tests are used for clinical purposes. They should not be regarded as investigational or for research. This laboratory is certified under the Clinical Laboratory Improvement Amendments of 1988 (CLIA) as qualified to perform high complexity clinical laboratory testing. (controls appropriate) Unless otherwise specified, all tissue is 10% NB formalin fixed and paraffin embedded. 5 8:40 AM EDT [facility] Tissue Structure of upper lobe of right lung / Unknown 03/23/2025 12:34 PM EDT 03/23/2025 12:49 PM EDT Tissue specimen (specimen) Lymph node specimen / Unknown 03/23/2025 12:41 PM EDT 03/23/2025 2:51 PM EDT Tissue specimen (specimen) Lymph node specimen / Unknown 03/23/2025 12:47 PM EDT 03/23/2025 2:51 PM EDT Tissue specimen (specimen) Lymph node specimen / Unknown 03/23/2025 12:54 PM EDT 03/23/2025 2:51 PM EDT Tissue specimen (specimen) Lymph node specimen / Unknown 03/23/2025 12:57 PM EDT 03/23/2025 2:51 PM EDT Tissue specimen (specimen) Lymph node specimen / Unknown 03/23/2025 1:00 PM EDT 03/23/2025 2:51 PM EDT us Mary Daniels MD LAB PATHOLOGY ORDERABLES Edited Result - Final [facility] [address] [place] [address], * TH AN ENDOTRACHEAL(NO CHARGE) (03/23/2025 12:00 PM EDT) Joanna Damon CRNA - 03/23/2025 12:00 PM EDT Joanna Kim CRNA 03/23/2025 12:02 PM Other Attempts Unsuccessful attempted endotracheal techniques: direct laryngoscopy General Information and Staff Patient location during procedure: [place] Anesthesiologist: Justin Montoya DO Resident/ROAD MACHINE RUNNER: Joanna Kim CRNA Performed: resident/ROAD MACHINE RUNNER/CAA Performed by: Joanna Kim CRNA Authorized by: Justin Montoya DO Intubation Difficult airway Urgency: elective Final Airway Details Successful airway: ETT - double lumen left Cuffed: yes Successful intubation technique: video laryngoscopy Facilitating devices/methods: intubating stylet Endotracheal tube insertion site: oral Blade: Lakesha Blade size: #3 ETT DL size (fr): 35 Cormack-Lehane Classification: grade IIa - partial view of glottis Placement verified by: chest auscultation and capnometry Number of attempts at approach: 1 Number of other approaches attempted: 1Final airway type: endotracheal airway Indications and Patient Condition Indications for airway management: anesthesia Spontaneous ventilation: present Sedation level: Yes Preoxygenated: yes Soft Tissue Damage: No Dentition Unchanged: Yes Patient position: sniffing Mask difficulty assessment: 2 - vent by mask + OA or adjuvant +/- NMBA Start Time: 03/23/2025 12:00 PMStop Time: 03/23/2025 12:00 PM Justinenrique Montoya DO ANESTHESIA ORDERABLES Final Result * Prepare RBC: 2 Units (03/23/2025 9:52 AM EDT) [facility] Signature Product Code [id number] 03/24/2025 7:27 AM [facility] Unit Number [id number] 03/24/20 7:27 AM [facility] Crossmatch Compatible 03/23/2025 9:55 AM [facility] Dispense Status Released From Crossmatch 03/24/2025 7:27 AM [facility] Unit ABO Rh ONEG 03/24/2025 7:27 AM [facility] Unit Expiration Date Time [id number] 03/24/2025 7:27 AM [facility] Unit Blood Type 9500 03/24/2025 7:27 AM [facility] Product Code [id number] 03/24/2025 7:27 AM [facility] Unit Number [id number] 03/24/20 25 7:27 AM [facility] Crossmatch Compatible 03/23/2025 9:57 AM [facility] Dispense Status Released From Crossmatch 03/24/2025 7:27 AM [facility] Unit ABO Rh ONEG 03/24/2025 7:27 AM EDT [facility] Unit Expiration Date Time [id number] 03/24/2025 7:27 AM EDT [facility] Unit Blood Type 9500 03/24/2025 7:27 AM EDT [facility] Blood Venous blood specimen / Unknown 03/23/2025 9:52 AM EDT 03/18/2025 10:51 AM EDT Radha MURPHY BLOOD B[facility] PRODUCT ORDERABLES Final Result Performing Organization Address City/[facility]/ZIP Co de Phone Number [facility] [address] [place] [address], [place] [phone] * ECG 12 lead - Procedural (No Charge) (03/18/2025 10:41 AM EDT) Ventricular Rate ECG 75 BPM GEMUSE Atrial Rate 75 BPM GEMUSE P-R Interval 186 ms GEMUSE QRS Duration 80 ms GEMUSE Q-T Interval 378 ms GEMUSE QTc 422 ms GEMUSE P Wave [place] 53 degrees GEMUSE R [place] 13 degrees GEMUSE T [place] 35 degrees GEMUSE ECG Interpretation Normal sinus rhythm Normal ECG No previous ECGs available Confirmed by Fidelina YAN JOHN ([id number]) on 03/18/2025 12:58:19 PM GEMUSE 03/18/2025 10:4 1 AM EDT 03/18/2025 12:58 PM EDT Mary Daniels MD ECG ORDERABLES Final Result GEMUSE * CBC auto differential (03/18/2025 10:31 AM EDT) WBC 5.8 4.8 - 10.8 K/[facility] HEMETOLOGY METHOD 03/18/2025 11:09 AM EDT [facility] RBC 4.20 3.80 - 4.80 M/mcL LAB HEMETOLOGY METHOD 03/18/2025 11:09 AM [facility] Hemoglobin 13.3 11.5 - 16.0 g/dL LAB HEMETOLOGY METHOD 03/18/2025 11:09 AM [facility] Hematocrit 39.7 35.0 - 47.0 % LAB HEMETOLOGY METHOD 03/18/2025 11:09 AM [facility] MCV 95.0 79.0 - 98.0 FL LAB HEMETOLOGY METHOD 03/18/2025 11:09 AM [facility] MCH 31.8 27.0 - 32.0 pcg LAB HEMETOLOGY METHOD 03/18/2025 11:09 AM [facility] MCHC 33.5 32.0 - 37.0 g/dL LAB HEMETOLOGY METHOD 03/18/2025 11:09 AM [facility] RDW 13.0 11.0 - 15.0 % LAB HEMETOLOGY METHOD 03/18/2025 11:09 AM [facility] Platelets 245 130 - 400 K/mcL LAB HEMETOLOGY METHOD 03/18/2025 11:09 AM [facility] MPV 10.0 7.0 - 11.0 FL LAB HEMETOLOGY METHOD 03/18/2025 11:09 AM [facility] NRBC 0.0 <1.0 % LAB HEMETOLOGY METHOD 03/18/2025 11:09 AM [facility] NRBC Absolute 0.00 <0.10 K/mcL LAB HEMETOLOGY METHOD 03/18/2025 11:09 AM [facility] Neutrophils Relative 65.9 % LAB HEMETOLOGY METHOD 03/18/2025 11:09 AM [facility] Lymphocytes Relative 21.8 % LAB HEMETOLOGY METHOD 03/18/2025 11:09 AM [facility] Monocytes Relative 10.8 % LAB HEMETOLOGY METHOD 03/18/2025 11:09 AM [facility] Eosinophils Relative 0.5 % LAB HEMETOLOGY METHOD 03/18/2025 11:09 AM [facility] Basophils Relative 0.7 % LAB HEMETOLOGY METHOD 03/18/2025 11:09 AM [facility] Immature Granulocytes Relative 0.3 % LAB HEMETOLOGY METHOD 03/18/2025 11:09 AM [facility] Neutrophils Absolute 3.84 1.50 - 7.00 K/mcL LAB HEMETOLOGY METHOD 03/18/2025 11:09 AM [facility] Lymphocytes Absolute 1.27 1.00 - 5.00 K/mcL LAB HEMETOLOGY METHOD 03/18/2025 11:09 AM [facility] Monocytes Absolute 0.63 0.20 - 1.00 K/mcL LAB HEMETOLOGY METHOD 03/18/2025 11:09 AM [facility] Eosinophils Absolute 0.03 0.00 - 0.50 K/mcL LAB HEMETOLOGY METHOD 03/18/2025 11:09 AM [facility] Basophils Absolute 0.04 0.00 - 0.20 K/mcL LAB HEMETOLOGY METHOD 03/18/2025 11:09 AM [facility] Immature Granulocytes Absolute 0.02 0.00 - 0.03 K/mcL LAB HEMETOLOGY METHOD 03/18/2025 11:09 AM [facility] Blood Venous blood specimen / Unknown Venipuncture / Unknown 03/18/2025 10:31 AM EDT 03/18/2025 10:52 AM EDT us Mary Daniels MD LAB BLOOD ORDERABLES Final Resul t [facility] [address] [place] [address], [place] [phone] * Activated partial thromboplastin time (03/18/2025 10:31 AM EDT) aPTT 30.3 24.1 - 39.3 sec LAB COAGULATION METHOD 03/18/2025 11:04 AM EDT [facility] Blood Venous blood specimen / Unknown Venipuncture / Unknown 03/18/2025 10:31 AM EDT 03/18/2025 10:52 AM EDT us Mary Daniels MD LAB BLOOD ORDERABLES Final Resul t Performing Organization Address [facility]/ZIP Co de Phone Number [facility] [address] [place] [address], [place] [phone] * Prothrombin time with INR (03/18/2025 10:31 AM EDT) Pathologist [facility] Protime 10.6 10.6 - 13.9 sec LAB COAGULATION METHOD 03/18/2025 11:04 AM EDT [facility] INR 0.8 LAB COAGULATION METHOD 03/18/2025 11:04 AM EDT [facility] Blood Venous blood specimen / Unknown Venipuncture / Unknown 03/18/2025 10:31 AM EDT 03/18/2025 10:52 AM EDT us Mary Daniels MD LAB BLOOD ORDERABLES Final Resul t [facility] [address] [place] [address], [place] [phone] * Type and screen (03/18/2025 10:31 AM EDT) ABO Group O 03/18/2025 12:46 PM EDT [facility] Rh Type Negative 03/18/2025 12:46 PM EDT [facility] Antibody Screen Negative 03/18/2025 12:46 PM EDT [facility] Blood Venous blood specimen / Unknown Venipuncture / Unknown 03/18/2025 10:31 AM EDT 03/18/2025 10:51 AM EDT us Mary Daniels MD LAB BLOOD BANK TEST ORDERABLES F inal Result [facility] [address] [place] [address], [place] [phone] * Pulmonary function testing: Carbon Monoxide Diffusing Capacity, Nitrogen Wash Out, Spirometry with Bronchodilator (03/16/2025 9:06 AM EDT) Impressions Mariaelena Juarez MD - 03/16/2025 9:06 AM EDT Pulmonary function test interpretation. Spirometry reveals FEV1 of 3.17 which is 127% of the predicted value, FVC is 4.04 which is 184% of the predicted value, FEV1 to FVC ratio is on and 1% of the predicted value, there is no bronchodilator response. Flow volume is consistent with normal pattern. Static lung volumes are elevated across the board. Diffusion lung capacity is mildly reduced and remained mildly reduced after correction for alveolar volume. The study is consistent with normal spirometry and lung volumes. However there is a isolated reduction in diffusion lung capacity for which clinical correlation is advised. us Mary Daniels MD PFT ORDERABLES Final Result from Last 3 Months Additional Health Concerns Infection Onset Date Last Indicated Mycoplasma 05/03/2025 05/03/2025 Insurance MEDICARE [facility] Advance Directives * Full Code - Default (Latest Code Status on File) Date Activated Date Inactivated Comments 03/23/2025 1:51 PM 03/24/2025 7:09 PM This is order is used when code status has not been discussed with the patient, or code status is otherwise unknown/unconfirmed To update the patient's code status, place a code status order. Do not modify or discontinue any currently active code status orders. * Full Code - Default Date Activated Date Inactivated Comments 03/23/2025 9:52 AM 03/23/2025 1:51 PM This is order is used when code status has not been discussed with the patient, or code status is otherwise unknown/unconfirmed To update the patient's code status, place a code status order. Do not modify or discontinue any currently active code status orders. Care Teams [employer] Relationship Specialty Start Date End Date Keila Sousa DO [facility] [address] [place] [id number] PCP - General Internal Medicine 03/01/25
== END 2025-06-09 11:49 | disposition home or self-care (01) ==
LOC: HO.HPSW 11:05
PROVIDERS: PCP Internal Medicine; Visit Provider Nurse Practitioner Family
DX: J45.909 Unspecified asthma, uncomplicated (principal); Z91.09 Other allergy status, other than to drugs and biological substances; R91.1 Solitary pulmonary nodule; J30.9 Allergic rhinitis, unspecified
CPT/HCPCS: 99214

== ENCOUNTER 2025-08-11 10:56 | Outpatient (AMB) | payer MEDICARE, SELFPAY ==
[2025-08-11 10:57] VITALS: BP 96/58; PULSE 88; O2SAT 97; BMI 22.4
--- NOTE | 2025-08-11 10:57 | MHC.OFFVIS ---
Vital Signs 08/11/25 10:57 Height 5 ft 4.75 in Weight 133 lb 8 oz BMI 22.4 BP 96/58 L Blood Pressure Location Rt brachial Position Sitting Pulse 88 Pulse Source Pulse Oximeter Pulse Oximetry (%) 97 Oxygen Delivery Method Room Air Intake Visit Reasons: pulmonary nodule Allergies latex Allergy (Intermediate, Verified 08/11/25 11:01) Itching omeprazole (From Prilosec) Allergy (Intermediate, Verified 08/11/25 11:01) Rash shellfish derived Allergy (Intermediate, Verified 08/11/25 11:01) Hives venlafaxine Allergy (Intermediate, Verified 08/11/25 11:01) Confusion cats Allergy (Intermediate, Uncoded 08/11/25 11:01) Difficulty Breathing salmon Allergy (Mild, Uncoded 08/11/25 11:01) Diarrhea HPI HPI pulmonary nodule: Details: Maryjo is a pleasant 64 year old female, never smoker, with underlying asthma, environmental allergies, osteoporosis, and h/o basal cell carcinoma of right arm. Chest CT 01/2025 demonstrated new RUL 12 mm pulmonary nodule with satellite lesions, PET 03/2025 revealed mild FDG activity and patient with family h/o lung cancer. She was referred to thoracic for further evaluation and underwent wedge resection 03/23/25, negative for carcinoma however positive for MAC. We discussed monitoring symptoms instead of treatment given her symptoms are more suggestive of uncontrolled asthma rather than infectious. Denies productive cough or chest congestion. She continued to report ongoing dyspnea and chest tightness despite Trelegy, Albuterol MDI, Singulair, Flonase and Xyzal, therefore started on Xolair by ROJAS. She received her first injection last week and reports significant improvements in dyspnea and exercise tolerance. Since injection has not had to use albuterol. Of note, there was a finding of multinodular thyroid on CT from [facility] and is scheduled for evaluation with endocrinology in September. [facility] Social History Patient Tobacco Use Status: Never used Tobacco Review of Systems Const Denies chills, Denies excessive sweating, Denies fever(s), Denies headache(s) and Denies night sweats Eyes Denies dry eyes, Denies irritation and Denies itchy eyes ENT Reports Normal hearing present, Denies headache(s), Denies nasal congestion, Denies nasal discharge, Denies post nasal drip and Denies sore throat Card Denies chest pain, Denies chest pain at rest, Denies chest pain with activity, Denies claudication, Denies leg edema, Denies dyspnea, Denies orthopnea and Denies paroxysmal nocturnal dyspnea Resp Denies chest congestion, Denies excessive phlegm production, Denies pain on inspiration, Denies pain with cough, Denies dyspnea, Denies stridor and Denies wheezing Musc Denies myalgias Neuro Reports Normal hearing present and Denies headache(s) Endo Denies excessive sweating Adrien/Lymph Denies lymphadenopathy Aller/Immun Denies itchy eyes, Denies seasonal rhinorrhea and Denies wheezing Physical Exam Vital Signs: Last Vital Signs Pulse 88 08/11/25 10:57 BP 96/58 L 08/11/25 10:57 Pulse Ox 97 08/11/25 10:57 Oxygen Delivery Method Room Air 08/11/25 10:57 BMI result Body Mass Index 22.4 Const General: cooperative, healthy appearing, comfortable, no acute distress, well developed and alert Orientation/consciousness: patient oriented x3 Limitations: no limitations HEENT Head: Yes normal to inspection, Yes normocephalic and Yes atraumatic Ears: hearing grossly normal bilaterally and external ears normal Eyes General: appearance normal, both eyes and all related structures Eyelids: Yes eyelids normal Sclerae: sclerae normal EOM: EOMs intact bilaterally Neck Neck: Yes normal visual inspection and Yes no lymphadenopathy Lymphatic: no lymphadenopathy noted Chest Chest palpation & inspection: normal inspection of the chest Resp Effort & Inspection: normal respiratory effort, able to speak in complete sentences, no audible wheezes, no cough, no stridor, not tachypneic, no tripod positioning and no use of accessory muscles Auscultation: clear to auscultation bilaterally Cardio Jugular venous distension: no JVD Rate: regular rate Rhythm: regular rhythm Skin Other: warm, dry General skin exam: no rashes or lesions noted Neuro General: patient oriented x3 Cranial nerves: Yes Normal hearing present Cognition (Neuro): normal cognition Gait exam (Neuro): Normal gait present Extrem General: Yes normal to inspection, Yes capillary refill normal, Yes no clubbing, cyanosis or edema and Yes no pedal edema Psych Appearance: grossly normal and well kempt Speech and movement: Normal speech and movement present and Clear speech present Affect: normal affect Attitude: cooperative Thought process: Normal thought process present Thought content: Normal thought content present Insight: Good insight present (Psych) Judgement: Good judgement present (Psych) Assessment & Plan Assessment & Plan (1) Asthma: Code(s): J45.909 - Unspecified asthma, uncomplicated Category: Medical (2) Environmental allergies: Code(s): Z91.09 - Other allergy status, other than to drugs and biological substances Category: Medical (3) Pulmonary nodule: Code(s): R91.1 - Solitary pulmonary nodule Category: Medical (4) Allergic rhinitis: Code(s): J30.9 - Allergic rhinitis, unspecified Category: Medical Plan At this time patient reports good control of respiratory symptoms on current regimen, advised to continue Trelegy, Albuterol MDI, Xolair, Flonase and Xzyal. She is aware to call if symptoms become less controlled. Previously patient underwent RUL wedge resection on 03/[address] Daniels for new RUL 12 mm pulmonary nodule consistent with MAC however patient denies cough/chest congestion. If she develops productive cough with associated congestion, may need to consider treatment of MAC at that time. Will also repeat chest CT in 6 months to ensure no recurrence of pulmonary nodules, order previously placed. All questions were answered and patient is in agreement of plan. Will follow up in 3 months or sooner if needed. Coding Level of Care Code Est Pt Level 4 (56317) Diagnoses Asthma J45.909 Environmental allergies Z91.09 Pulmonary nodule R91.1 Allergic rhinitis J30.9
== END 2025-08-11 11:33 | disposition home or self-care (01) ==
LOC: HO.HPSW 10:56
PROVIDERS: PCP Internal Medicine; Visit Provider Nurse Practitioner Family
DX: J45.909 Unspecified asthma, uncomplicated (principal); Z91.09 Other allergy status, other than to drugs and biological substances; R91.1 Solitary pulmonary nodule; J30.9 Allergic rhinitis, unspecified
CPT/HCPCS: 99214

== ENCOUNTER → 2025-08-11 10:56 | Outpatient (BNVA) | payer MEDICARE, SELFPAY | PROVIDERS: PCP Internal Medicine; Visit Provider Nurse Practitioner Family | DX: R91.1 Solitary pulmonary nodule (principal); J45.909 Unspecified asthma, uncomplicated; Z91.09 Other allergy status, other than to drugs and biological substances | CPT/HCPCS: 99212 ==